=== PATIENT | female | born 1990 | race Caucasian/White ===

== ENCOUNTER → 2018-07-28 11:30 | Outpatient (CLI) | payer BC, SELFPAY ==
--- NOTE | 2018-07-28 11:41 | RAD_ITS ---
STUDY: HYSTEROSALPINGOGRAM. REASON FOR EXAM: Female, 27 years old. Infertility. FLUOROSCOPY TIME (if supplied): (0:14) minutes/seconds. TECHNIQUE: A hysterosalpingogram was performed by the puddler pile driving. Imaging was provided. COMPARISON: None. FINDINGS: There is opacification of the uterus. It is unremarkable. Both fallopian tubes are widely patent with bilateral spill. RAD/Salpingogram IMPRESSION: The fallopian tubes are widely patent with free spill bilaterally. Electronically Signed: Peter Alvarado, at 15:46 EDT , Service support ,
== END ==
PROVIDERS: Family Provider Family Medicine; PCP Family Medicine; Referring Provider Obstetrics & Gynecology; Visit Provider Obstetrics & Gynecology
DX: N97.9 Female infertility, unspecified (principal)
CPT/HCPCS: 58340; 74740; Q9967

== ENCOUNTER → 2020-01-26 17:56 | Outpatient (CLI) | payer BC, SELFPAY | PROVIDERS: PCP Family Medicine; Referring Provider Obstetrics & Gynecology; Visit Provider Obstetrics & Gynecology | DX: Z11.59 Encounter for screening for other viral diseases (principal) | CPT/HCPCS: 87635; C9803; U0003 ==

== ENCOUNTER 2020-02-01 16:14 | Inpatient (IN) | payer BC, SELFPAY ==
[2020-02-01 16:22] VITALS: BMI 31.6
[2020-02-01 16:32] VITALS: BP 122/71; PULSE 91; TEMP 36.9; O2SAT 99
--- NOTE | 2020-02-01 16:40 | HP.PCM_ITS ---
History Date of Admission: 02/01/20 Final ROBER: 01/25/20 Gestational age: 41 Weeks and 0 Days History of this : Patient presents for induction of labor. Denies complaints. Allergies No Known Allergies Allergy (Verified 02/01/20 16:24) Home Medications: Home Medications Escitalopram Oxalate [Lexapro] 20 mg PO DAILY 02/01/20 Vit No.130/Iron/Folic [ Tablet] 1 ea PO DAILY 02/01/20 Alcohol: None Number of Fetus(es): 1 NST - FHR Rate Baby A Baseline: 135 Variability:: Moderate Accelerations:: 15 x 15 Decelerations:: None NST Reactive:: Yes Uterine Activity:: Irregular History Past Pregnancies: Past Pregnancies Delivery Date Name GA/ Weeks Outcome Route Wt Sex Labor Length Anesthesia Delivery Location Provider FOB Labs: See [facility] H&P Physical Exam Vitals: Vital Signs Temp Pulse BP Pulse Ox 98.4 F 91 122/71 H 99 02/01/20 16:32 02/01/20 16:32 02/01/20 16:32 02/01/20 16:32 General: Alert, Oriented x3 Abdomen: Soft, Non Tender, Non-Distended, Gravid Neurological: Cranial nerves II-XII grossly intact [employer]: Normal external genitalia Estimated gestational size: Appropriate for gestational size Presentation: Cephalic Cervix Dilation (cm): 0 Station: -3 Effacement (%): 50 Assessment/Plan This is a 29 year-old, G2, P0010, at 41 weeks gestational age Admit to L&D Induction - start cytotec GBS negative COVID negative Pain - epidural as desired EFW - less than 4500g, patient with adequate pelvis Routine care
[2020-02-01] MEDS: 0.9% Saline Lock 10 ML Syringe IV (17:04)
[2020-02-01 17:17] LABS: Absolute Lymphocyte Count 1.94 X10^3/uL (0.83-4.51); Absolute Neutrophil Count 7.1 X10^3/uL (2.0-7.7); Basophil# 0.05 X10^3/uL; Basophil% 0.5 % (0-1); Eosinophil# 0.03 X10^3/uL; Eosinophils% 0.3 % (0-5); Hematocrit 37.6 % (37-47); Hemoglobin 12.5 g/dL (12.0-15.0); Lymphocyte # 1.94 X10^3/ul (4.0); Lymphocyte % 19.8 % (19-41); Mean Corp Hgb Conc 33.2 g/dL (32-36); Mean Corpuscular Hgb 28.7 pg (27.0-32.0); Mean Corpuscular Volume 86.4 fL (81-99); Mean Platelet Vol. 11.2 fl (6.2-12.0); Monocyte# 0.53 X10^3/uL; Monocyte% 5.4 % (0-10); NRBC Flagged by Analyzer 0 % (0-5); Neutrophil % 72.3 % (47-70); Platelet Count 161 K/mm3 (150-450); RBC Distribution Width CV 19.7 % (11.6-14.6); RBC Distribution Width SD 60.8 fl (35.1-43.9); Red Blood Count 4.35 M/mm3 (4.2-5.4); White Blood Count 9.8 K/mm3 (4.4-11.0)
[2020-02-01] MEDS: miSOPROStol 25 MCG TABLET VAGINAL ×2 (18:21→22:23)
[2020-02-01 19:19] VITALS: BP 122/76; PULSE 65; TEMP 36.6; O2SAT 99
[2020-02-01 22:27] VITALS: TEMP 36.4
[2020-02-01 22:28] VITALS: BP 106/57; PULSE 62
[2020-02-02] VITALS (32 sets, daily range): BP systolic 104–129; BP diastolic 55–81; PULSE 54–77; RESP 14–18; TEMP 35.9–37.1; O2SAT 90–100
[2020-02-02] MEDS: miSOPROStol 25 MCG TABLET VAGINAL (02:37)
[2020-02-02] MEDS: 0.9% Normal Saline Single 100 ML IV.SOLN. IY (06:41)
--- NOTE | 2020-02-02 06:47 | PCM.PN.BLA ---
Progress Note S: Patient comfortable with ctxs O: cvx - /70/-3 intracervical queen placed fhts 135 with mod variability, accels tocos Q2-4 minutes A&P: continue induction will start pitocin STROKE Vital Signs/Narrative: Vital Signs Pulse BP 02/01/ 06:38 75 120/73
[2020-02-02] MEDS: Lactated Ringers 1,000 ML 50 ML IV (07:31)
[2020-02-02] MEDS: Oxytocin 30 units/NS 500 ml 30 UNITS/500 ML IV.SOLN IV (07:41)
[2020-02-02] MEDS: Lactated Ringers 500 ML 999 ML IV ×2 (11:35→15:10)
[2020-02-02] MEDS: fentaNYL-bupivacaine (epidural) 100 ML BAG EPIDURAL ×2 (12:35→17:10)
--- NOTE | 2020-02-02 13:00 | PCM.PROGNOTE ---
Subjective: Sitting up in bed, breathing through contractions. King still in place. Partner at bedside. Objective: FHT 140, moderate variability, accels, no decels, Category 1 FHT TOCO: every 3 minutes, moderate to strong. King catheter still in place. - Physical Exam Vitals/I&O's: Vital Signs Temp Pulse BP Pulse Ox 96.6 F L 64 109/56 L 90 02/02/20 07:37 02/02/20 12:58 02/02/20 12:58 02/02/20 12:33 Weight: 195 lb 12.328 oz Body Mass Index (BMI) 31.6 Intake and Output for Last 24 Hours 01/31/20 02/01/20 02/02/20 23:59 23:59 23:59 Intake Total 600 / 600 705.20 / 705.20 Output Total 1000 / 1000 1999 / 1999 Balance -400 / -400 -1294.80 / -1294.80 Laboratory Results 02/01/20 17:00: WBC 9.8, RBC 4.35, Hgb 12.5, Hct 37.6, MCV 86.4, MCH 28.7, MCHC 33.2, RDW Std Deviation 60.8 H, RDW Coeff of Ksenia 19.7 H, Plt Count 161, MPV 11.2, Immature Gran % (Auto) 1.700 H, Neut % (Auto) 72.3 H, Lymph % (Auto) 19.8, Rhea % (Auto) 5.4, Eos % (Auto) 0.3, Baso % (Auto) 0.5, Absolute Neuts (auto) 7.1, Absolute Lymphs (auto) 1.94, Nucleated RBC % 0 02/01/20 17:00: Blood Type A POSITIVE, Antibody Screen NEGATIVE Current Medications Acetaminophen (Tylenol) 325 - 650 mg PO Q4H PRN PRN PRN Reason: Pain Score 1-3/10 Al Hydroxide/Mg Hydroxide (Mylanta Ii) 15 - 30 ml PO Q4H PRN PRN PRN Reason: INDIGESTION Citric Acid/Sodium Citrate (Bicitra) 30 ml PO X1 PRN PRN Reason: Section Ephedrine Sulfate () 10 mg IV Q10M PRN PRN Reason: hypotension Ephedrine Sulfate () 10 mg IM Q30M PRN PRN Reason: hypotension Fentanyl Citrate (Sublimaze (100mcg Ampule)) 25 - 50 mcg IV Q2H PRN PRN PRN Reason: Pain Score 4-10/10 Fentanyl/Bupivacaine/Sodium Chlor () 0 ml EPIDURAL UD [facility]; Protocol Last Admin: 02/02/20 12:35 Dose: 100 ml Documented by: Lactated Ringer's () 500 mls @ 999 mls/hr IV .Q31M PRN PRN Reason: Epidural Last Infusion: 02/02/20 12:06 Dose: Infused Documented by: Lactated Ringer's () 500 mls @ 999 mls/hr IV .Q31M PRN PRN Reason: Corrective Measures Lactated Ringer's () 1,000 mls @ 50 mls/hr IV .Q20H [facility] Last Infusion: 02/02/20 11:35 Dose: 200 mls/hr Documented by: Oxytocin/Sodium Chloride () 30 units in 500 mls @ 2 mls/hr IV .Q250H [facility] Last Infusion: 02/02/20 08:37 Dose: 4 mls/hr Documented by: Naloxone HCl 4 mg/ Dextrose 504 mls @ 0 mls/hr IV .Q0M PRN; Protocol PRN Reason: To maintain Resp. rate >10 Nalbuphine HCl (Nubain) 5 mg IV Q3H PRN PRN PRN Reason: ITCHING Naloxone HCl (Narcan) 0.02 mg IV Q1M PRN PRN Reason: RR< 10 AND PT UNRESPONSIVE Ondansetron HCl (Zofran) 4 mg IV Q4H PRN PRN PRN Reason: NAUSEA Prochlorperazine Edisylate (Compazine Iv) 10 mg IV Q6H PRN PRN PRN Reason: NAUSEA Sodium Chloride () 10 - 40 ml IV X1 PRN PRN Reason: SALINE FLUSH Last Admin: 02/01/20 17:04 Dose: 10 ml Documented by: Medical Necessity - Tobacco Use Smoking Status: Never smoker Assessment/Plan A:Induction of Labor Category 1 FHT P: 1) Continue with IOL and pitocin 2) Continuous EFM 3) Repositioned to hands and knees. Positional changes 4) notified of patient status.
--- NOTE | 2020-02-02 13:09 | PCM.PN.OB ---
Subjective: Sitting up on peanut ball. Requesting epidural Objective: 120, moderate variability, accels, no decels, Category 1 FHT, MELINA TOCO: every 2-3 minutes, moderate to strong Cervix 5cm/80/-1 AROM clear fluid - Physical Exam Vitals/I&O's: Vital Signs Temp Pulse BP Pulse Ox 96.6 F L 64 109/56 L 90 02/02/20 07:37 02/02/20 12:58 02/02/20 12:58 02/02/20 12:33 Weight: 195 lb 12.328 oz Body Mass Index (BMI) 31.6 Intake and Output for Last 24 Hours 01/31/20 02/01/20 02/02/20 23:59 23:59 23:59 Intake Total 600 / 600 705.20 / 705.20 Output Total 1000 / 1000 1999 / 1999 Balance -400 / -400 -1294.80 / -1294.80 Laboratory Results 02/01/20 17:00: WBC 9.8, RBC 4.35, Hgb 12.5, Hct 37.6, MCV 86.4, MCH 28.7, MCHC 33.2, RDW Std Deviation 60.8 H, RDW Coeff of Ksenia 19.7 H, Plt Count 161, MPV 11.2, Immature Gran % (Auto) 1.700 H, Neut % (Auto) 72.3 H, Lymph % (Auto) 19.8, Carbon % (Auto) 5.4, Eos % (Auto) 0.3, Baso % (Auto) 0.5, Absolute Neuts (auto) 7.1, Absolute Lymphs (auto) 1.94, Nucleated RBC % 0 02/01/20 17:00: Blood Type A POSITIVE, Antibody Screen NEGATIVE Current Medications Acetaminophen (Tylenol) 325 - 650 mg PO Q4H PRN PRN PRN Reason: Pain Score 1-3/10 Al Hydroxide/Mg Hydroxide (Mylanta Ii) 15 - 30 ml PO Q4H PRN PRN PRN Reason: INDIGESTION Citric Acid/Sodium Citrate (Bicitra) 30 ml PO X1 PRN PRN Reason: Section Ephedrine Sulfate () 10 mg IV Q10M PRN PRN Reason: hypotension Ephedrine Sulfate () 10 mg IM Q30M PRN PRN Reason: hypotension Fentanyl Citrate (Sublimaze (100mcg Ampule)) 25 - 50 mcg IV Q2H PRN PRN PRN Reason: Pain Score 4-10/10 Fentanyl/Bupivacaine/Sodium Chlor () 0 ml EPIDURAL UD [facility]; Protocol Last Admin: 02/02/20 12:35 Dose: 100 ml Documented by: Lactated Ringer's () 500 mls @ 999 mls/hr IV .Q31M PRN PRN Reason: Epidural Last Infusion: 02/02/20 12:06 Dose: Infused Documented by: Lactated Ringer's () 500 mls @ 999 mls/hr IV .Q31M PRN PRN Reason: Corrective Measures Lactated Ringer's () 1,000 mls @ 50 mls/hr IV .Q20H [facility] Last Infusion: 02/02/20 11:35 Dose: 200 mls/hr Documented by: Oxytocin/Sodium Chloride () 30 units in 500 mls @ 2 mls/hr IV .Q250H [facility] Last Infusion: 02/02/20 08:37 Dose: 4 mls/hr Documented by: Naloxone HCl 4 mg/ Dextrose 504 mls @ 0 mls/hr IV .Q0M PRN; Protocol PRN Reason: To maintain Resp. rate >10 Nalbuphine HCl (Nubain) 5 mg IV Q3H PRN PRN PRN Reason: ITCHING Naloxone HCl (Narcan) 0.02 mg IV Q1M PRN PRN Reason: RR< 10 AND PT UNRESPONSIVE Ondansetron HCl (Zofran) 4 mg IV Q4H PRN PRN PRN Reason: NAUSEA Prochlorperazine Edisylate (Compazine Iv) 10 mg IV Q6H PRN PRN PRN Reason: NAUSEA Sodium Chloride () 10 - 40 ml IV X1 PRN PRN Reason: SALINE FLUSH Last Admin: 02/01/20 17:04 Dose: 10 ml Documented by: Medical Necessity - Tobacco Use Smoking Status: Never smoker Assessment/Plan A:Active labor progressing Category 1 FHT P: 1) Continue with active management 2) Positional changes 3) notified
[2020-02-02] MEDS: Mag Hydrox/Al Hydrox/Simeth 30 ML UDC PO (16:11)
[2020-02-02] MEDS: Lactated Ringers 1,000 ML 200 ML IV (17:10)
--- NOTE | 2020-02-02 19:00 | PCM.PN.OB ---
Subjective: comfortable with epidural. at bedside. Objective: FHR 113, minimal variability, early and late decelerations. Category 2 TOCO: every 2-4 minutes Cervis 5cm/80/-1 with caput Pitocin at 6 mus - Physical Exam Vitals/I&O's: Vital Signs Temp Pulse BP Pulse Ox 98.2 F 63 122/67 H 100 02/02/20 16:00 02/02/20 18:03 02/02/20 18:03 02/02/20 16:00 Weight: 195 lb 12.328 oz Body Mass Index (BMI) 31.6 Intake and Output for Last 24 Hours 01/31/20 02/01/20 02/02/20 23:59 23:59 23:59 Intake Total 600 / 600 2023.47 / 2022.47 Output Total 1000 / 1000 3900 / 3900 Balance -400 / -400 -1876.53 / -1876.53 Current Medications Acetaminophen (Tylenol) 325 - 650 mg PO Q4H PRN PRN PRN Reason: Pain Score 1-3/10 Al Hydroxide/Mg Hydroxide (Mylanta Ii) 15 - 30 ml PO Q4H PRN PRN PRN Reason: INDIGESTION Last Admin: 02/02/20 16:11 Dose: 30 ml Documented by: Citric Acid/Sodium Citrate (Bicitra) 30 ml PO X1 PRN PRN Reason: Section Ephedrine Sulfate () 10 mg IV Q10M PRN PRN Reason: hypotension Ephedrine Sulfate () 10 mg IM Q30M PRN PRN Reason: hypotension Fentanyl Citrate (Sublimaze (100mcg Ampule)) 25 - 50 mcg IV Q2H PRN PRN PRN Reason: Pain Score 4-10/10 Fentanyl/Bupivacaine/Sodium Chlor () [address] [facility]; Protocol Last Admin: 02/02/20 17:10 Dose: 100 ml Documented by: Lactated Ringer's () 500 mls @ 999 mls/hr IV .Q31M PRN PRN Reason: Epidural Last Infusion: 02/02/20 12:06 Dose: Infused Documented by: Lactated Ringer's () 500 mls @ 999 mls/hr IV .Q31M PRN PRN Reason: Corrective Measures Last Infusion: 02/02/20 15:41 Dose: Infused Documented by: Lactated Ringer's () 1,000 mls @ 50 mls/hr IV .Q20H [facility] Last Admin: 02/02/20 17:10 Dose: 200 mls/hr Documented by: Oxytocin/Sodium Chloride () 30 units in 500 mls @ 2 mls/hr IV .Q250H [facility] Last Infusion: 02/02/20 14:01 Dose: 6 mls/hr Documented by: Naloxone HCl 4 mg/ Dextrose 504 mls @ 0 mls/hr IV .Q0M PRN; Protocol PRN Reason: To maintain Resp. rate >10 Nalbuphine HCl (Nubain) 5 mg IV Q3H PRN PRN PRN Reason: ITCHING Naloxone HCl (Narcan) 0.02 mg IV Q1M PRN PRN Reason: RR< 10 AND PT UNRESPONSIVE Ondansetron HCl (Zofran) 4 mg IV Q4H PRN PRN PRN Reason: NAUSEA Prochlorperazine Edisylate (Compazine Iv) 10 mg IV Q6H PRN PRN PRN Reason: NAUSEA Sodium Chloride () 10 - 40 ml IV X1 PRN PRN Reason: SALINE FLUSH Last Admin: 02/01/20 17:04 Dose: 10 ml Documented by: Medical Necessity - Tobacco Use Smoking Status: Never smoker Assessment/Plan A:Active Labor, protracted Category 2 FHT P: 1) Continue with pitocin active management 2) Positional changes and side lying release 3) notified of status and exam.
[2020-02-02] MEDS: Sodium Citrate/Citric Acid 30 ML UDC PO (20:01)
--- NOTE | 2020-02-02 20:03 | PCM.PN.BLA ---
Progress Note At bedside to talk to patient. She has been unchanged for 8 hours. Unable to titrate Pitocin given intolerance to labor. Category 2 tracing with occasional late decelerations, and now minimal variability. Recommend a section for intolerance to labor. Discussed risk, benefits, alternatives of section and patient desires to proceed. Patient provided consent. STROKE Vital Signs/Narrative: Vital Signs Temp Pulse BP Pulse Ox 02/02/20 19:34 98.8 F 68 129/79 H 100 02/02/20 18:03 63 122/67 H
[2020-02-02] MEDS: Cefazolin 2 GM in 0.9% Normal Saline 100 ML IV (20:22)
--- NOTE | 2020-02-02 21:24 | OP.PCM_ITS ---
Problem List (1) 41 weeks gestation of Status: Acute (2) Primiparous Status: Acute (3) intolerance to labor, delivered, current hospitalization Status: Acute (4) Face presentation of fetus Status: Acute Report of Operation Date of Procedure: 02/02/20 Pre-Operative Diagnosis: 41 week gestation, primiparous, intolerance to labor Post-Operative Diagnosis: As above, face presentation Surgery/Procedure Performed:: PLTCS via pfannenstiel incision Description of Surgical Findings:: was in face presentation. Normal-appearing placenta with a three-vessel cord. Normal-appearing uterus, bilateral tubes, bilateral ovaries. Type of Anesthesia:: Epidural Special Medications: None Specimen's removed: Placenta Drains: King Estimated Blood Loss (mL): 900 Fluids Replaced: 1200 Description of Procedure: Patient was taken to the operating room where epidural anesthesia was found to be adequate. She was prepped and draped in the usual sterile fashion in dorsal position with a leftward tilt. A Pfannenstiel skin incision was made with a scalpel and this was carried down to the underlying layer of fascia. The fascia was incised in the midline. The fascia was extended laterally using Seymour scissors. The fascia was dissected off of the rectus muscles using a combination of sharp and blunt dissection. The rectus muscles were in the midline. The peritoneum was entered sharply with good visualization of the bladder. The peritoneum was extended bluntly. Bladder blade was placed. A bladder flap was created. A low transverse incision was made on the uterus with a scalpel. was noted to be in face presentation. was delivered through the hysterotomy without any force or delay. The was delivered atraumatically and the cord was clamped and cut immediately, and the was handed off to the nursery staff. Cord gases were obtained. The placenta was removed manually. The uterus was exteriorized. The uterus was cleared of all clot and debris. The uterus was closed with Vicryl in 2 layers. The uterus was then placed back in the abdomen. Cristiano was placed over the hysterotomy. Hemostasis was noted. The peritoneum was closed with Vicryl in a running fashion. The fascia was closed with Vicryl in running fashion. Subcutaneous space was irrigated and made hemostatic with Bovie cautery. The subcutaneous space was reapproximated with Vicryl in a running fashion. The skin was closed with Monocryl in subcuticular fashion. Steri-Strips and a dressing were placed. Sponge, instrument, needle counts were correct. The patient was taken to recovery in stable condition. Grafts/Implants Used: None - Complications None - Admit VTE Documentation VTE Present on Admission: No VTE Mechan Device Prophylaxis: SCD's VTE Pharm Prophylaxis ordered?: Yes Delivery Classification: MIGDALIA Final ROBER: 01/25/20 Gestational age: 41 Weeks and 1 Days Type of Anesthesia:: Epidural Indications for : Distress Amniotic Fluid Description: Clear Drain: King to straight drain Cord Entanglement: None Cord Vessel Description: 3 Vessels Gender: Male (1 minute): 8 (5 minute): 9 Delayed cord clamping: No Antibiotic Given: Ancef 2 grams IV x1, Zithromax 500 mg/5 mL X1 Pt instructed on risks of surgery: Bleeding, Infection, Need for Future C- Sections, Injury to surrounding structure(s) including bowel and bladder
[2020-02-02] MEDS: Oxytocin 30 units/NS 500 ml 30 UNITS/500 ML IV.SOLN 167 UNITS IV (21:35)
--- NOTE | 2020-02-02 22:35 | NURSING ---
1200 cc LR given per dr jean-baptiste anesthesia in OR.
[2020-02-03] VITALS (11 sets, daily range): BP systolic 91–121; BP diastolic 49–75; PULSE 67–80; RESP 14–18; TEMP 36.1–37.1; O2SAT 97–100
[2020-02-03] MEDS: Lactated Ringers 1,000 ML 100 ML IV (00:38)
[2020-02-03] MEDS: 0.9% Saline Lock 10 ML Syringe IV ×5 (03:29→21:45)
[2020-02-03] MEDS: Ketorolac 30 MG/ML Syringe IV ×4 (03:29→21:45)
[2020-02-03] MEDS: Acetaminophen 500 MG Tablet 1000 MG PO ×4 (03:29→21:45)
[2020-02-03 03:56] LABS: Hematocrit 37.1 % (37-47); Hemoglobin 12.4 g/dL (12.0-15.0); Mean Corp Hgb Conc 33.4 g/dL (32-36); Mean Corpuscular Hgb 28.9 pg (27.0-32.0); Mean Corpuscular Volume 86.5 fL (81-99); Mean Platelet Vol. 10.3 fl (6.2-12.0); Platelet Count 143 K/mm3 (150-450); RBC Distribution Width CV 19.8 % (11.6-14.6); RBC Distribution Width SD 61.7 fl (35.1-43.9); Red Blood Count 4.29 M/mm3 (4.2-5.4); White Blood Count 12.6 K/mm3 (4.4-11.0)
--- NOTE | 2020-02-03 03:56 | NURSING ---
pt able to get out of bed independently with RN at bedside. pt marched in place for a few minutes before sitting back in bed.
--- NOTE | 2020-02-03 08:15 | NURSING ---
voided, missed hat. states feels like emptying bladder, no discomfort. denies concern
--- NOTE | 2020-02-03 08:33 | PN.OBGYN_ITS ---
Patient Problems: Active and Suspected Problems (Last Updated 02/01/20 @ 16:[address] Nathaly Moralez MD) 41 weeks gestation of (Acute) Primiparous (Acute) intolerance to labor, delivered, current hospitalization (Acute) Face presentation of fetus (Acute) Subjective: pt seen at bedside, doing well. pt reports good pain control. lochia mild. voiding w/o difficulty. Denies CP, SOB, dizziness. Ambulating without difficulty. - Physical Exam Vitals/I&O's: Vital Signs Temp Pulse Resp BP Pulse Ox 97.6 F L 70 14 116/72 99 02/03/20 05:32 02/03/20 06:30 02/03/20 06:30 02/03/20 05:32 02/03/20 06:30 Oxygen Delivery Method Room Air Weight: 88.8 kg Body Mass Index (BMI) 31.6 Intake and Output for Last 24 Hours 02/01/20 02/02/20 02/03/20 23:59 23:59 23:59 Intake Total 600 / 600 3264.30 / 3264.30 2328.33 / 2328.33 Output Total 1000 / 1000 4675 / 4675 2700 / 2700 Balance -400 / -400 -1410.70 / -1410.70 -371.67 / -371.67 General: Alert, Oriented x3 Abdomen: Soft, Non Tender, Non-Distended, - - fundus firm. dressing dry and intact Laboratory Results 02/03/20 03:50: WBC 12.6 H, RBC 4.29, Hgb 12.4, Hct 37.1, MCV 86.5, MCH 28.9, MCHC 33.4, RDW Std Deviation 61.7 H, RDW Coeff of Ksenia 19.8 H, Plt Count 143 L, MPV 10.3 Current Medications Acetaminophen (Tylenol) 1,000 mg PO Q6H [facility] Last Admin: 02/03/20 03:29 Dose: 1,000 mg Documented by: Bisacodyl (Dulcolax) 10 mg RECTAL UD PRN PRN Reason: If no BM Diphenhydramine HCl (Benadryl) 25 mg PO Q6H PRN PRN PRN Reason: ITCHING Stop: 02/03/20 21:48 Enoxaparin Sodium (Lovenox) 40 mg SC DAILY [facility] Hydrocortisone (Hytone) 1 applic TOPICAL TID PRN PRN; Protocol PRN Reason: Discomfort Lactated Ringer's () 1,000 mls @ 100 mls/hr IV .Q10H [facility] Last Infusion: 02/03/20 05:55 Dose: Infused Documented by: Naloxone HCl 4 mg/ Dextrose 504 mls @ 0 mls/hr IV .Q0M PRN; Protocol PRN Reason: To maintain Resp. rate >10 Ibuprofen (Motrin) 600 mg PO Q6H [facility] Ketorolac Tromethamine (Toradol (Bkc)) 30 mg IV Q6H [facility] Stop: 02/03/20 21:16 Last Admin: 02/03/20 03:29 Dose: 30 mg Documented by: Methylergonovine Maleate (Methergine) 0.2 mg IM X1 PRN PRN Reason: Uterine Atony Nalbuphine HCl (Nubain) 5 mg IV Q3H PRN PRN PRN Reason: ITCHING Stop: 02/03/20 21:48 Naloxone HCl (Narcan) 0.02 mg IV Q1M PRN PRN Reason: RR <10 and pt unresponsive Ondansetron HCl (Zofran) 4 mg IV Q4H PRN PRN PRN Reason: Nausea Oxycodone HCl (Oxyir) 5 - 10 mg PO Q4H PRN PRN PRN Reason: Pain Score 4-10/10 Prochlorperazine Edisylate (Compazine Iv) 10 mg IV Q6H PRN PRN PRN Reason: NAUSEA Senna/Docusate Sodium (Senokot-S, Mary-Colace) 1 - 2 tablet PO DAILY [facility] Simethicone (Mylicon) 80 mg PO [facility] PRN PRN Reason: Indigestion/stomach pain Sodium Chloride () 5 - 15 ml IV UD PRN PRN Reason: SALINE FLUSH Last Admin: 02/03/20 05:55 Dose: 10 ml Documented by: Medical Necessity - Tobacco Use Smoking Status: Never smoker Assessment/Plan All Active Problems (Last Updated 02/01/20 @ 16:[address] Nathaly Moralez MD) 41 weeks gestation of (Acute) Primiparous (Acute) intolerance to labor, delivered, current hospitalization (Acute) Face presentation of fetus (Acute) POD#1, doing well routine care pain mgmt ambulation
[2020-02-03] MEDS: Enoxaparin 40 MG/0.4 ML Syringe SC (08:59)
[2020-02-03] MEDS: Senna/Docusate Sodium 1 Tablet PO (09:00)
--- NOTE | 2020-02-03 16:20 | CASEMGMT ---
Social Work Labor and Delivery Unit Consult received and noted. Chart has been reviewed. Plan to see patient/mother of baby on 02.04.2020 for assessment/consult and provision of resources as indicated. -KRYSTLE Hirsch, CARD WRITER HAND
--- NOTE | 2020-02-03 18:43 | NURSING ---
education given on IS use ad purpose
[2020-02-04 01:37] VITALS: BP 112/59; PULSE 58; RESP 16; TEMP 36.3; O2SAT 100
[2020-02-04] MEDS: Acetaminophen 500 MG Tablet 1000 MG PO ×3 (03:57→18:42)
[2020-02-04] MEDS: Ibuprofen 600 MG Tablet PO ×3 (03:57→18:42)
--- NOTE | 2020-02-04 07:52 | PCM.PN.OB ---
Patient Problems: Active and Suspected Problems (Last Updated 02/01/20 @ 16:[address] Nathaly Moralez MD) 41 weeks gestation of (Acute) Primiparous (Acute) intolerance to labor, delivered, current hospitalization (Acute) Face presentation of fetus (Acute) Subjective: Patient seen at bedside. Up ambulating in room. Passing flatus. Voiding without difficulty. infant and working with . Desires discharge home today. - Physical Exam Vitals/I&O's: Vital Signs Temp Pulse Resp BP Pulse Ox 97.4 F L 58 L 16 112/59 L 100 02/04/20 01:37 02/04/20 01:37 02/04/20 01:37 02/04/20 01:37 02/04/20 01:37 Oxygen Delivery Method Room Air Weight: 195 lb 12.328 oz Body Mass Index (BMI) 31.6 Intake and Output for Last 24 Hours 02/02/20 02/03/20 02/04/20 23:59 23:59 23:59 Intake Total 3264.30 / 3264.30 2328.33 / 2328.33 Output Total 4675 / 4675 2700 / 2700 Balance -1410.70 / -1410.70 -371.67 / -371.67 General: Alert, Oriented x3, Cooperative HEENT: Atraumatic Neck: Supple Lungs: Clear to auscultation Cardiovascular: Regular rate Abdomen: Soft, Non Tender, Passing Flatus Skin: No rashes Musculoskeletal: No Tenderness to Palpation of Joints or Extremities Neurological: Cranial nerves II-XII grossly intact Current Medications Acetaminophen (Tylenol) 1,000 mg PO Q6H [facility] Last Admin: 02/04/20 03:57 Dose: 1,000 mg Documented by: Bisacodyl (Dulcolax) 10 mg RECTAL UD PRN PRN Reason: If no BM Enoxaparin Sodium (Lovenox) 40 mg SC DAILY [facility] Last Admin: 02/03/20 08:59 Dose: 40 mg Documented by: Hydrocortisone (Hytone) 1 applic TOPICAL TID PRN PRN; Protocol PRN Reason: Discomfort Naloxone HCl 4 mg/ Dextrose 504 mls @ 0 mls/hr IV .Q0M PRN; Protocol PRN Reason: To maintain Resp. rate >10 Ibuprofen (Motrin) 600 mg PO Q6H [facility] Last Admin: 02/04/20 03:57 Dose: 600 mg Documented by: Methylergonovine Maleate (Methergine) 0.2 mg IM X1 PRN PRN Reason: Uterine Atony Naloxone HCl (Narcan) 0.02 mg IV Q1M PRN PRN Reason: RR <10 and pt unresponsive Ondansetron HCl (Zofran) 4 mg IV Q4H PRN PRN PRN Reason: Nausea Oxycodone HCl (Oxyir) 5 - 10 mg PO Q4H PRN PRN PRN Reason: Pain Score 4-10/10 Prochlorperazine Edisylate (Compazine Iv) 10 mg IV Q6H PRN PRN PRN Reason: NAUSEA Senna/Docusate Sodium (Senokot-S, Mary-Colace) 1 - 2 tablet PO DAILY [facility] Last Admin: 02/03/20 09:00 Dose: 2 tablet Documented by: Simethicone (Mylicon) 80 mg PO [facility] PRN PRN Reason: Indigestion/stomach pain Last Admin: 02/03/20 15:25 Dose: 80 mg Documented by: Sodium Chloride () 5 - 15 ml IV UD PRN PRN Reason: SALINE FLUSH Last Admin: 02/03/20 21:45 Dose: 10 ml Documented by: Medical Necessity - Tobacco Use Smoking Status: Never smoker Assessment/Plan All Active Problems (Last Updated 02/01/20 @ 16:[address] Nathaly Moralez MD) 41 weeks gestation of (Acute) Primiparous (Acute) intolerance to labor, delivered, current hospitalization (Acute) Face presentation of fetus (Acute)
--- NOTE | 2020-02-04 08:00 | DCINST_ITS ---
Discharge Diet: No Restrictions Additional Instructions: If you experience any of the following, contact your healthcare provider. * Bleeding that soaks a pad every hour for 2 hours * Fever 100.4 or higher * Unrelieved incision or abdominal pain * Swelling, redness, discharge or bleeding from your incision or episi otomy site * Your incision begins to separate * Problems urinating (including inability to urinate or burning while urinating). * Visual changes * Severe headache * Flu-like symptoms * Pain or redness in one of both of your breasts * Pain, warmth, tenderness or swelling in your legs, especially the calf area * Frequent nausea and vomiting * Symptoms of depression or anxiety If you experience any of the following, call 911 or go to the nearest Emergency Room. * Chest pain * Problems breathing * Seizure activity * Partial or complete paralysis of a body part, slurred speech, weakness or drooping of the face, or a sudden inability to walk or hold your balance Allergies/Adverse Reactions: Allergies No Known Allergies Allergy (Verified 02/01/20 16:24) Medications to take at Discharge Escitalopram Oxalate [Lexapro] 20 mg PO DAILY 02/01/20 Vit No.130/Iron/Folic [ Tablet] 1 ea PO DAILY 02/01/20 Follow-Up: Call to make an appointment with your doctor for an incision check in 1-2 weeks. You will also need a 6 week post- follow up appointment. Test results from this visit will be discussed in further detail at your follow- up appointment, if applicable. Primary Care Physician: Awais Macias MD [Primary Care Provider] - Proposed Discharge Date: 02/04/20
--- NOTE | 2020-02-04 08:00 | PCM.DCCSEC ---
Discharge Diet: No Restrictions Additional Instructions: If you experience any of the following, contact your healthcare provider. Bleeding that soaks a pad every hour for 2 hours Fever 100.4 or higher Unrelieved incision or abdominal pain Swelling, redness, discharge or bleeding from your incision or episiotomy site Your incision begins to separate Problems urinating (including inability to urinate or burning while urinating). Visual changes Severe headache Flu-like symptoms Pain or redness in one of both of your breasts Pain, warmth, tenderness or swelling in your legs, especially the calf area Frequent nausea and vomiting Symptoms of depression or anxiety If you experience any of the following, call 911 or go to the nearest Emergency Room. Chest pain Problems breathing Seizure activity Partial or complete paralysis of a body part, slurred speech, weakness or drooping of the face, or a sudden inability to walk or hold your balance Allergies/Adverse Reactions: Allergies No Known Allergies Allergy (Verified 02/01/20 16:24) Medications to take at Discharge Escitalopram Oxalate [Lexapro] 20 mg PO DAILY 02/01/20 Vit No.130/Iron/Folic [ Tablet] 1 ea PO DAILY 02/01/20 Follow-Up: Call to make an appointment with your doctor for an incision check in 1-2 weeks. You will also need a 6 week post- follow up appointment. Test results from this visit will be discussed in further detail at your follow-up appointment, if applicable. Primary Care Physician: Awais Macias MD [Primary Care Provider] - Proposed Discharge Date: 02/04/20
[2020-02-04 08:43] VITALS: BP 102/63; PULSE 68; RESP 18; TEMP 36.6; O2SAT 100
[2020-02-04] MEDS: Senna/Docusate Sodium 1 Tablet PO (10:13)
[2020-02-04] MEDS: Enoxaparin 40 MG/0.4 ML Syringe SC (10:15)
--- NOTE | 2020-02-04 11:10 | CASEMGMT ---
Social Work Labor and Delivery Unit Reason for referral: maternal history of depression and anxiety. Summary: Patient/mother of baby (MOB) Imelda Flores is a 29 year old Caucasians female, to father of baby (FOB) Benoit Flores who is age 30. MOB and FOB together for 4 years. MOB works at [employer] and FOB is an hydraulics engineer. 2nd for MOB and first delivery. Baby baby Christian was born on 02.02.2022 and weighed 7 pounds 13 ounces at . Apgars 8 and 9 at 1 and 5 minutes of life. MOB reports history of depression and anxiety since high school and has been on Lexapro for many years. MOB reports has tried to go off of the medicine in the past without success, and reports to feel as though the medicine works well. MOB and FOB deny any history of substance use issues. Maternal drug screen negative on 06.25.2019. MOB endorses to have good support from FOB, mother, and several good female friends. Assessment: MOB and FOB both polite and cooperative with social work visit. Both engaged in conversation. FOB asking appropriate questions regarding depression and how to be proactive. MOB reports intent to remain on her antidepressant in the period, listened to education on risk for mood and anxiety disorders, and agreed to speak up should symptoms arise or become distressing. MOB is future oriented. Parents report to have needed supplies to care for baby. FOB will be at home to help out for a month. No voice concerns at this time. No voiced concerns by staff regarding mother/child interactions or bonding. Observed both parents handle the infant and noted appropriate interactions. MOB endorses having loving feelings for the baby. Provided packet on mood and anxiety disorders, local resources, and online resources. Plan: MOB and baby to home when ready for discharge. No further needs requested or indicated. -KRYSTLE Hirsch, RADIO REPAIRMAN
--- NOTE | 2020-02-04 12:03 | NURSING ---
Assisted student with medication administration and Lovenox SQ injection
[2020-02-04 13:31] VITALS: BP 104/61; PULSE 84; RESP 17; TEMP 36.3; O2SAT 98
[2020-02-04 18:59] VITALS: BP 109/69; PULSE 62; RESP 18; TEMP 36.6
--- NOTE | 2020-02-08 08:20 | PCM.DC.SUM ---
Discharge Date and Diagnosis Date of Admission: 02/01/20 Date of Discharge: 02/04/20 Hospital Course and Treatment Summary of Care Provided: The patient is a 29 year old F with primary c/s for intolerance to labor. Hospital course uneventful. Patient stable. - Physical Exam Vitals/I&O's: Vital Signs Temp Pulse Resp BP Pulse Ox 97.9 F 62 18 109/69 98 02/04/20 18:59 02/04/20 18:59 02/04/20 18:59 02/04/20 18:59 02/04/20 13:31 Oxygen Delivery Method Room Air Weight: 195 lb 12.328 oz Body Mass Index (BMI) 31.6 Discharge Diet: No Restrictions Home Medications: Medications to take at Discharge Escitalopram Oxalate [Lexapro] 20 mg PO DAILY 02/01/20 Vit No.130/Iron/Folic [ Tablet] 1 ea PO DAILY 02/01/20 Primary Care Physician: Awais Macias MD [Primary Care Provider] - Medical Necessity - Tobacco Use Smoking Status: Never smoker Meaningful Use Info Meaningful Use Diagnoses (Choose all that apply): None applicable
== END 2020-02-04 19:22 | disposition home or self-care (01) | DRG 788 ==
PROVIDERS: Obstetrics & Gynecology; Admitting Provider Obstetrics & Gynecology; PCP Family Medicine; Visit Provider Obstetrics & Gynecology
DX: O48.0 Post-term pregnancy (principal); O32.3XX0 Maternal care for face, brow and chin presentation, not applicable or unspecified; O76 Abnormality in fetal heart rate and rhythm complicating labor and delivery; Z3A.41 41 weeks gestation of pregnancy; Z37.0 Single live birth
CPT/HCPCS: 59025; 59050; 85025; 85027; 86850; 86900; 86901; 99218; 99251; J7120; A4216; G0378; G0463

== ENCOUNTER 2022-02-27 04:25 | Inpatient (IN) | payer BC, SELFPAY ==
[2022-02-27] VITALS (23 sets, daily range): BP systolic 95–129; BP diastolic 26–82; PULSE 64–109; RESP 12–23; TEMP 36.1–37.3; O2SAT 95–100
[2022-02-27] MEDS: Lactated Ringers 1,000 ML 999 ML IV ×2 (04:40→05:45)
[2022-02-27] MEDS: Acetaminophen 500 MG Tablet 1000 MG PO ×4 (04:50→23:24)
[2022-02-27] MEDS: Sodium Citrate/Citric Acid 30 ML UDC PO (04:51)
[2022-02-27 04:57] LABS: Absolute Lymphocyte Count 1.09 X10^3/uL (0.83-4.51); Basophil# 0.03 X10^3/uL; Basophil% 0.2 % (0-1); Hematocrit 34.3 % (37-47); Hemoglobin 11.8 g/dL (12.0-15.0); Lymphocyte # 1.09 X10^3/ul (0.83-4.51); Lymphocyte % 7.8 % (19-41); Mean Corp Hgb Conc 34.4 g/dL (32-36); Mean Corpuscular Hgb 27.6 pg (27.0-32.0); Mean Corpuscular Volume 80.1 fL (81-99); Mean Platelet Vol. 10.4 fl (6.2-12.0); Monocyte# 0.72 X10^3/uL; Monocyte% 5.2 % (0-10); NRBC Flagged by Analyzer 0 % (0-5); Neutrophil % 85.8 % (47-70); Platelet Count 189 K/mm3 (150-450); RBC Distribution Width CV 12.8 % (11.6-14.6); RBC Distribution Width SD 36.2 fl (35.1-43.9); Red Blood Count 4.28 M/mm3 (4.2-5.4)
[2022-02-27] MEDS: Cefazolin 2 GM in 0.9% Normal Saline 100 ML IV (05:25)
--- NOTE | 2022-02-27 05:29 | PCM.HP.OB ---
HPI - General General Date of Admission: 02/27/22 HPI Narrative KATERYNA CIFUENTES, is a 31 F who presents with cctxs. Maternal Data Information Final ROBER: 03/09/22 Gestational age: 38&3 PFSH PFSH Medical History (Updated 02/27/22 @ 05:[address] Nathaly Moralez MD) Anemia Anxiety History of pericarditis Home Medications escitalopram oxalate 20 mg tablet 20 mg PO DAILY Check with primary doctor 02/01/20 [History Last Taken 02/26/22 08:00] vits no.130-ferrous fum 27 mg iron-folic acid 800 mcg tablet 1 ea PO DAILY Check with primary doctor 02/01/20 [History Last Taken 02/26/22 08:00] Allergy/AdvReac Type Severity Reaction Status Date / Time No Known Allergies Allergy Verified 02/27/22 01:50 Surgical History (Updated 02/27/22 @ 05:[address] Nathaly Moralez MD) Previous section Previous section Social History Smoking Status: Never smoker History Elective abortions Hx Para 1 Spontaneous abortions Hx # Term Pregnancies Ectopic pregnancies Hx # Pregnancies Multiple births # of living children Vital Signs Vital Signs Vital Signs: 02/27/22 02:02 02/27/22 02:02 02/27/22 02:01 Temperature Temperature Source Pulse Rate 70 Respiratory Rate Blood Pressure 122/81 H Blood Pressure Mean BP Systolic 122 BP Diastolic 81 Blood Pressure Source Blood Pressure Position Blood Pressure Location Pulse Ox 100 Oxygen Delivery Method 02/27/22 02:03 02/27/22 02:03 02/27/22 04:47 Temperature 98.5 F Temperature Source Temporal Pulse Rate Respiratory Rate Blood Pressure 129/82 H Blood Pressure Mean BP Systolic 129 BP Diastolic 82 Blood Pressure Source Blood Pressure Position Blood Pressure Location Pulse Ox Oxygen Delivery Method 02/27/22 04:47 02/27/22 04:47 02/27/22 04:47 Temperature Temperature Source Temporal Pulse Rate 73 Respiratory Rate Blood Pressure Blood Pressure Mean BP Systolic BP Diastolic Blood Pressure Source Blood Pressure Position Blood Pressure Location Pulse Ox 100 Oxygen Delivery Method 02/27/22 04:47 02/27/22 04:47 Temperature 98.4 F 98.4 F Temperature Source Temporal Pulse Rate 75 Respiratory Rate 18 Blood Pressure 129/82 H Blood Pressure Mean 97 BP Systolic BP Diastolic Blood Pressure Source Monitor Blood Pressure Position Semi-Fowlers Blood Pressure Location Right Arm Pulse Ox 100 Oxygen Delivery Method Room Air Weight Weight: 186 lb 3.2 oz Body Mass Index (BMI) 30.0 Labs Labs Labs: Blood Type A POSITIVE Antibody Screen NEGATIVE Hct 34.3 % (37-47) L Hgb 11.8 g/dL (12.0-15.0) L Rhogam given: No See [facility] H&P Assessment & Plan (1) Previous section: COMMENT: @ 38&4 PLAN: Admit to L&D for labor MOD - repeat . patient counseled on R/B/A. COVID negative Routine care (2) 38 weeks gestation of :
[2022-02-27] MEDS: miSOPROStol 200 MCG Tablet 1000 MCG INTRA-UTER (05:49)
--- NOTE | 2022-02-27 06:23 | EX.PCM.OBRPT ---
Maternal Data Information Final ROBER: 03/09/22 Gestational age: 38&4 Details Operative Information Date of Procedure: 02/27/22 Pre-Operative Diagnosis: (1) Prior section (2) Labor Post-Operative Diagnosis: Same Indications for : Repeat Elective Indications Narrative: The patient was taken to the operating room where spinal anesthesia was placed & found to be adequate. She was prepped and draped in the dorsal supine position with a leftward tilt. A Pfannenstiel skin incision was made approximately 2 cm above the symphysis pubis and carried through to the underlying fascia with the scalpel. The fascia was incised incised in the midline and extended laterally with the Seymour scissors. The rectus muscles were in the midline and the peritoneum was entered carefully and bluntly. The peritoneal incision was stretched and the bladder blade was inserted. Vesicouterine peritoneum was tented up, incised & then bladder flap created gently. The uterine incision was made in a low transverse fashion with the scalpel and extended superiorly and inferiorly with blunt dissection. The infant's head was brought to the incision in the flexed position and delivered without difficulty. The head was gently guided to allow delivery of the anterior and posterior shoulders. The body then delivered with fundal pressure in the standard fashion. The 3VC cord was clamped and cut in delayed fashion. The was handed off to the waiting pediatrics teacher. The placenta was delivered with fundal massage and gentle traction in the standard fashion. The uterus was exteriorized and cleared of clots and debris. The uterine incision was closed with #1 Vicryl suture in a running locked fashion. Monocryl suture was used in an imbricating fashion. The incision was examined and was found to be hemostatic. The uterus was returned to the abdominal cavity. After irrigating Cristiano was placed over the uterine incision as some areas were denuded (but hemostatic). The peritoneum was closed with vicryl suture in running fashion The rectus muscle was examined and any bleeding was Bovie cauterized. The fascia was closed with PDS suture in a running standard fashion. The subcutaneous tissue was examining and any bleeding was Bovie cauterized. The subcutaneous tissue was reapproximated with interrupted sutures. The skin was closed in a subcuticular fashion by the YANG while I was present in the labor & delivery unit. The remainder of the procedure was performed by me with assistance. All sponge, lap, and needle counts were correct. The patient was taken to her room for recovery in a stable condition. Classification: MIGDALIA Procedure Type: low transverse warehouse examiner #1: Maggie Acosta Type of Anesthesia: Spinal Antibiotic Given: Ancef 2 grams IV x1 Estimated Blood Loss: 800ml Fluids Replaced: 1,000ml Procedure Start Time: 05:39 Procedure Stop Time: 06:26 Findings Description of Procedure: Normal maternal uterus and adnexa Presentation: Positive for Vertex Amniotic Membrane Rupture Type: Artificial Amniotic Fluid Description: Clear Placental Delivery Description: Expressed Placenta Disposition: [facility] Specimen(s) Sent to Pathology: None Cord Vessel Description: 3 Vessels Cord Entanglement: None A Gender: Male (Miles, weight = 6-13) (1 minute): 8 (5 minute): 9 Delayed Cord Clamping: Yes Complications Complications: None
[2022-02-27] MEDS: Lactated Ringers 1,000 ML 100 ML IV (07:16)
[2022-02-27] MEDS: 0.9% Saline Lock 10 ML Syringe IV ×2 (07:16→18:54)
[2022-02-27] MEDS: Ketorolac 30 MG/ML Syringe IV ×3 (07:17→18:54)
[2022-02-27] MEDS: Escitalopram Oxalate 20 MG Tablet PO (09:44)
[2022-02-27] MEDS: Senna/Docusate Sodium 1 Tablet PO (09:44)
[2022-02-27] MEDS: Prenatal Vits Tablet 1 TABLET PO (09:44)
[2022-02-27] MEDS: FLU VACC QS2022-23(6MOS UP)/PF 60 MCG/0.5 ML SYRINGE IM (09:45)
[2022-02-27] MEDS: Nalbuphine 10 MG/ML Ampul 5 MG IV (10:38)
[2022-02-27] MEDS: Enoxaparin 40 MG/0.4 ML Syringe SC (18:54)
[2022-02-28] MEDS: Ketorolac 30 MG/ML Syringe IV (01:19)
[2022-02-28] MEDS: 0.9% Saline Lock 10 ML Syringe IV (01:20)
[2022-02-28 03:36] VITALS: BP 97/62; PULSE 62; RESP 18; TEMP 36.1; O2SAT 97
[2022-02-28] MEDS: Acetaminophen 500 MG Tablet 1000 MG PO ×2 (05:29→11:13)
[2022-02-28 05:44] LABS: Hematocrit 30.4 % (37-47); Hemoglobin 10.1 g/dL (12.0-15.0); Mean Corp Hgb Conc 33.2 g/dL (32-36); Mean Corpuscular Hgb 27.4 pg (27.0-32.0); Mean Corpuscular Volume 82.6 fL (81-99); Mean Platelet Vol. 10.4 fl (6.2-12.0); Platelet Count 137 K/mm3 (150-450); RBC Distribution Width CV 12.8 % (11.6-14.6); RBC Distribution Width SD 38.7 fl (35.1-43.9); Red Blood Count 3.68 M/mm3 (4.2-5.4); White Blood Count 8.4 K/mm3 (4.4-11.0)
[2022-02-28] MEDS: Ibuprofen 600 MG Tablet PO ×2 (08:09→13:10)
[2022-02-28 08:13] VITALS: BP 106/66; PULSE 67; RESP 16; TEMP 36.2; O2SAT 100
--- NOTE | 2022-02-28 08:15 | PCM.PN.OB ---
Documented by User: Mirta Rosario CNM 02/28/22 08:15 Objective Data Objective Data Vital Signs: Vital Signs Temp Pulse Resp BP Pulse Ox O2 Del Method 97.1 F L 67 16 106/66 100 Room Air 02/28/22 08:13 02/28/22 08:13 02/28/22 08:13 02/28/22 08:13 02/28/22 08:13 02/28/22 08:13 Oxygen Delivery Method Room Air Weight: 186 lb 3.2 oz Body Mass Index (BMI) 30.0 Intake & Output: Intake and Output for Last 24 Hours 02/26/22 02/27/22 02/28/22 23:59 23:59 23:59 Intake Total 3691.67 / 3691.67 Output Total 3125 / 3125 Balance 566.67 / 566.67 Lab / Micro Data Result Diagrams: 02/28/22 05:37 Labs: Laboratory Results - last 24 hr 02/28/22 05:37: WBC 8.4, RBC 3.68 L, Hgb 10.1 L, Hct 30.4 L, MCV 82.6, MCH 27.4, MCHC 33.2, RDW Std Deviation 38.7, RDW Coeff of Ksenia 12.8, Plt Count 137 L, MPV 10.4 Micro: Microbiology 02/27/22 04:45 Nasal Secretion SARS-CoV-2 Antigen (Rapid) - Final Assessment & Plan (1) delivery delivered: Documented by User: Dr. Nano Smith MD 02/28/22 11:43 Subjective Subjective pain well controlled, average lochia. Some flatus, no BM. Tolerating regular diet. Objective Data Lab / Micro Data Result Diagrams: 02/28/22 05:37 Physical Exam Const alert General Appearance: cooperative GI GI Narrative: soft, moderate distention, fundus firm, appropriately tender. Abdominal bandage clean dry and intact Assessment & Plan (1) delivery delivered: PLAN: Postoperative day #1 post repeat section. Patient and are doing well. is bottlefeeding. Patient desires discharge home later today. Prescriptions given. Routine follow-up and instructions.
[2022-02-28] MEDS: Senna/Docusate Sodium 1 Tablet PO (11:13)
--- NOTE | 2022-02-28 11:44 | PCM.DC.SUM ---
Providers Date of Admission: 02/27/22 Primary Care Physician: Dr. Awais Macias MD Reason For Visit: Diagnosis Discharge Diagnosis (1) delivery delivered: Status: Acute Code(s): O82 - Encounter for delivery without indication Plan: Postoperative day #1 post repeat section. Patient and are doing well. is bottlefeeding. Patient desires discharge home later today. Prescriptions given. Routine follow-up and instructions. Medications at Discharge Home Medications escitalopram oxalate 20 mg tablet 20 mg PO DAILY Check with primary doctor 02/01/20 vits no.130-ferrous fum 27 mg iron-folic acid 800 mcg tablet 1 ea PO DAILY Check with primary doctor 02/01/20 ibuprofen 600 mg tablet 600 mg PO Q6H PRN PRN pain 20 days #60 TABLETS 02/28/22 oxycodone 5 mg tablet 5 mg PO Q8H PRN severe pain 7 days #8 TABLETS 02/28/22 Hospital Course Operations - (Repeat low transverse section performed on 02/27/2022.) Procedures None Summary of Care Provided Hospital Course: Carmencita is a 31-year-old female who had a previous section and desired repeat section. She presented at 38 weeks gestation with spontaneous labor. Dr. Moralez performed the repeat section on 02/27/2022. Patient are doing well today and patient desires discharge home. Weight / BMI Weight Weight: 84.459 kg Body Mass Index (BMI) 30.0 ABG / Lab / Microbiology Data Result Diagrams: 02/28/22 05:37 Laboratory: Laboratory Results - last 24 hr 02/28/22 05:37: WBC 8.4, RBC 3.68 L, Hgb 10.1 L, Hct 30.4 L, MCV 82.6, MCH 27.4, MCHC 33.2, RDW Std Deviation 38.7, RDW Coeff of Ksenia 12.8, Plt Count 137 L, MPV 10.4 Microbiology: Microbiology 02/27/22 04:45 Nasal Secretion SARS-CoV-2 Antigen (Rapid) - Final D/C Instructions May resume sexual activity in: 6 weeks Call your doctor if your incision/area has: Continuous Slow Oozing, Sudden Increased Bleeding and Foul Smelling Discharge Call your doctor if you observe: Fever of 101 or Higher Remove Dressing in: 4 days Cleanse incision/area with: Soap & Water Please Follow Up With: Nano Smith MD When: Follow up with our office in 1-2 and 6 weeks or as needed. [phone] Meaningful Use Info Meaningful Use Diagnoses (Choose all that apply): None applicable Discharge Plan Admission Admit Date/Time: 02/27/22 04:25 Primary Reason for Your Visit: delivery Attending Provider: Nathaly Moralez Primary Care Provider: Awais Macias Discharge Orders/Prescriptions Prescriptions: New ibuprofen [ibuprofen] 600 MG tablet 600 mg PO Q6H PRN PRN (Reason: pain) 20 Days Qty: 60 1RF oxycodone 5 MG tablet 5 mg PO Q8H PRN (Reason: severe pain) 7 Days Qty: 8 0RF Continued escitalopram oxalate 20 MG tablet 20 mg PO DAILY vit no.[id number] 1 EACH tablet 1 ea PO DAILY Referrals / Follow Up: Awais Macias MD [Primary Care Provider] - Disposition Disposition (needs filled in before D/C Order can be placed): Home, Self Care
[2022-02-28] MEDS: oxyCODONE 5 MG Tablet PO (13:20)
[2022-02-28 13:25] VITALS: BP 112/66; PULSE 64; RESP 16; TEMP 36.1; O2SAT 98
--- NOTE | 2022-02-28 15:16 | CASEMGMT ---
SW Note Referral Source: [facility] KORY Referral Reason: History of anxiety and depression. On Lexapro KORY met with REMEDIOS Diaz RN, and she voiced that she has no concerns regarding patient. KORY met with REMEDIOS and JONA Berumen and FOB in regard to consult. MOB gave verbal consent to meet with her in the presence of the FOB. Mom: Imelda Munguia PNC: [facility] Control: MOB said that they are working on it. Baby: Favian : 02/27/[birth year] Apgars: 8/9 Weight: 6# 13 ounces Slot Floor Person: Dr. Benavidez Bottle Feeding MOB' other children: Syed, age 2 Housing: MOB reports they reside in a house that is adequate to meet their needs. Transportation: REMEDIOS reports she has access and is able to drive when medically clear to drive. Supplies: REMEDIOS reports that he has safe crib, bassinet, carseat and diapers for the nb. Support: MOB reports she has lots of support from friends and family. MOB reports that her parents and the FOB's parents are local and supportive. Education Level: MOB graduated high school and college. No learning issues Employment: REMEDIOS reports that she works for a [employer]. She plans to return to work in 6-8 weeks. 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 MOB reports that they have a voice over announcer that will care for both of the children. Agency Involvement: NO DJFS, WIC, HMG, Counseling, legal or CSB involvement. FOB: Benoit Time Together: 8 years Involved at : Yes, FOB will take one month of paternity leave from his job as an engineering consultant at [employer] Other Children: FOB is father to Aurora MIRYAM MH/ AOD/DV : Denied by FOB Maternal MH History: REMEDIOS reports that she has been taking Lexapro since HS and it works for her. Per chart MOB had discontinued Lexapro and then decided to resume it again. REMEDIOS took Lexapro during her and plans to continue to take the Lexapro. MOB does not currently participate in counseling but has in the past. KORY asked MOB about history of PPD and MOB said no.. I don't know how to answer that. SW discussed symptoms of PPD. MOB denied SI/HI. SW educated MOB that if symptoms of weepiness, tearfulness and crying and not sure why are present for 4 or more days or if patient is unable to get out of bed then MOB needs to call her MD and MOB verbalized understanding. MOB and FOB were educated on Shaken Baby Syndrome, PPD and Safe Sleeping. MOB reports no alcohol or drug use. MOB is not a smoker MOB completed PHQ-2 with score of 0. Plan: Home at discharge Carmencita SHANKAR
== END 2022-02-28 16:25 | disposition home or self-care (01) | DRG 788 ==
LOC: WPOUT 04:43 → WP 04:43
PROVIDERS: Admitting Provider Obstetrics & Gynecology; PCP Family Medicine; Visit Provider Obstetrics & Gynecology
DX: O34.211 Maternal care for low transverse scar from previous cesarean delivery (principal); Z37.0 Single live birth; Z3A.38 38 weeks gestation of pregnancy
CPT/HCPCS: 59025; 59050; 85025; 85027; 86850; 86900; 86901; 87426; 99218; J7120; 90686; A4216; G0378

== ENCOUNTER 2023-02-12 08:00 | Outpatient (RCR) | payer BC, SELFPAY ==
--- NOTE | 2023-02-12 11:55 | BH.NA ---
Physical Data Vital Signs Pulse Rate: 50 Blood Pressure: 124/58 Height/Weight Height: 1.69 m Weight:: 69.4 kg Weight in Pounds: 153.0 lbs Current Medication Compliance Medication Compliance Do you take your medication as prescribed?: Yes Nutritional History Appetite Nutritional Instructions: Describe your appetite:: Fair Additional nutritional information:: Client states recently her appetite has been slightly decreased and she has lost a small amount of weight due to stress. Functional Assessment Sleep Pattern Describe any problems with sleeping: Client states she has been sleeping an average of 5 hours per night. Sensory/Communication Assess Communication Problems Do you have difficulty understanding what people are saying?: No Medical Problems/History Cardiac Conditions Cardiovascular: Other (See comments) (history of one episode of pericarditis in college) Pain Assessment Do you have acute or chronic pain?: No Surgical History Surgical History Have you had any surgeries? If so, list type and date:: Yes ( x2, hernia repair) Substance Abuse Substance Abuse Please describe substance abuse in the last 30 days:: Client denies alcohol, tobacco or substance use. Client states she has recently cut all caffeine use out. Mental Status Summary Mental Status Significant Findings/Observations on Appearance and Mood:: Client is alert and oriented x 4. Client is casually groomed with good hygiene. Client makes good eye contact. Client's voice has normal rate and volume. Client has appropriate affect. Client makes logical associations and has normal processing. Client denies delusions/hallucinations. Client denies SI. Suicide Assessment Suicidal Ideation Are you currently or have you been suicidal in the past?: No Suicidal Intentional Rating Scale (SIRS): No suicidal thoughts (past or present) Physician Notification Past Psychiatric History MH Treatment Hx Past Psychiatric Medications:: Lexapro (took for about 15 years) Age of first mental health symptoms: Client was first on medication for mental health around age 18, but states her anxiety dates back into childhood. Describe (age, circumstance, etc) any past hospitalizations: None. Current providers for mental health treatment (counselor, psychiatrist, case checker, etc.): Trish BONILLA at [address] psychiatry Fall Risk Assessment Age Age: Less than 60 Mental Status Mental Status: Willing & able to ask for assistance when needed Physical Status Physical Status: No problems Impairments Impairments: None Elimination Elimination: Continent AND independent Gait or Balance Gait or Balance: Walks independently Hx of Falls History of falls in the past 6 months: No known history Medications/Substances Psychotropics:: Antidepressants Medications/substances used within the past 24 hours or ordered to administer: 1-2 of the medications/substances listed above Total Score Total Points:: 1 RN Summary of Impressions Impressions Recommendations Impressions: Psychiatric Issues: 1. Generalized anxiety disorder 2. Major depression, recurrent, moderate 3. Panic disorder Level of Care How do the client's current symptoms and functional deficits support need for this level of care?: Client was referred to IOP by her outpatient psychiatry provider for panic attacks and intrusive thoughts. Client states for about 2 months, she has been having daily panic attacks and states I just feel like I have a high anxiety level all day long, mornings are especially worse Client reports racing thoughts, crying episodes and constant worry. Client states she does not know specific trigger for panic attacks. IOP will promote gains and prevent further decompensation while providing social support and skills training.
[2023-02-12 12:10] VITALS: BP 124/58; PULSE 50
--- NOTE | 2023-02-12 12:42 | PCM.BH.PSYEV ---
Psychiatric Evaluation Initial Evaluation Initial Evaluation: Chief Complaint: I cannot shut my brain off. History of Present Illness: [] The patient is a 32-year-old female with a history of anxiety who was referred to the [facility] by her psychiatric providers at [place] [address] for worsening anxiety. The patient currently lives with her and her 1-year-old and 3-year-old children. Patient describes her marriage is good. The patient works full-time at her mother's [employer] and she likes the work enough but is uncertain that she wants to take it over when her mother retires. The patient has a long history of anxiety which has worsened in the past few months. The exacerbation began when she panicked 1 night the night before she had a planned day of vacation. The patient states that she likes to be busy and she often feels anxious or panicked when she contemplates a day off. Following several days of severe anxiety she then got in a funk and remained anxious and got somewhat down. She states that she has daily feelings of panic with increased heart rate and feeling warm and feeling a sense of impending doom. This last almost all day lately and is not so much a discrete panic attack in recent weeks. She has constant and worthless which she describes as intrusive thoughts which involve worry about ordinary issues in life such as what why cook for dinner for the rest of my life, what is the point of living, NH good enough it what I do. These thoughts overall are ego-syntonic. The patient describes herself as always being perfectionistic and hard-working. She denies any rituals ever. For primary support she has her , parents and friends. She has been feeling her worst anxiety in the morning when she wakes up. She has been exercising by running or lifting weights and other things to help decrease this anxiety in the morning and it has helped somewhat. She has cut all her use of caffeine out for several months. Her mood is sad and down with occasional crying. She feels occasionally hopelessness and feels chronically inadequate but denies worthlessness. She enjoys being with her children but not much else lately. Appetite is okay or maybe a little decreased and she has had an unintentional weight loss of several pounds in the past few months. She is sleeping on average 5 to 6 hours a night but the ranges from 4 to 7 hours a night. She goes to bed around 10 PM and sometimes wakes up early around 2:58 in the morning and cannot get back to sleep. Energy level is overall okay but occasionally low. Concentration is decreased. She denies passive thoughts of , guilt, homicidal ideation, hallucinations, delusions or floresita ever. She does admit to fleeting, passive suicidal ideation in recent weeks but denies any plan for suicide or any intent. She wants to feel better and does not want to live her life in this way. She is a worrier by nature and ruminates negatively and describes racing thoughts of worry. She denies OCD, eating disorder, trauma, PTSD, seizure or head trauma. Another stressor is that 4 months ago a young coworker of her 's very young and the patient then had a hernia and had some COVID testing that showed increased lymph nodes and she was worried she also was possibly had a cyst illness that might cause . No history of self-harm. Current Psychiatric Medications: [] Prozac 40 mg p.o. daily (started Prozac for 5 weeks ago and the dose was increased to 60 mg recently but then was decreased back down to 40 mg 1 day ago as the patient had side effects). Hide, hydroxyzine 25 mg 1 p.o. nightly, melatonin nightly. Past Psychiatric History: [] No psych admits ever. No suicide attempts ever. She first took medications at age 13 for test anxiety and fear of speaking in public. She was on Lexapro for over 15 years to 20 years and 20 mg was the highest dose. In college the patient had a similar episode of worsening anxiety and then depression with her thoughts then worry revolving around self-doubt and low self-esteem thoughts. She has had counseling off-and-on since college a few times only. She recently had Social IQ (Social Influence Quotient)ight testing and the results should be back in less than 1 week. Substance Use History: [] Non-smoker. No vaping. No drugs, alcohol or marijuana. Allergies: [] No known allergies Medications: [] Iron supplement, multivitamin, magnesium and B3 Past Medical History: [] No medical illnesses but does have a history of anemia while . She has had 2 sections but no other surgeries except 1 hernia repair last year. She is a 2 para 2 Ab0 female with regular menstrual periods. Family Psychiatric History: [] Mother is 65 years old and father is 68 years old. Father has anxiety. No suicides in the family and no drug or alcohol problems in the family. Personal/Social History: [] The patient was born and raised in [facility] and describes her childhood as awesome. She denies any verbal, sexual or physical abuse ever. Her parents were and are and were loving to her. Her father is a little bit controlling but she has a close relationship with him. She has 1 sister 3 years older and they are close. She pressured herself in school and worked very hard and obtained a's in school. She had anxiety over taking tests and reading out loud in grade school and high school. 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 She got at age 25 and her is 32 years old and he is an environmental engineering intern and is supportive of the patient. They have 2 healthy children age 1 and age 3. Legal History: [] No arrests. 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 She is able to but sometimes is a little afraid or nervous about driving. Review of Systems: [] Review of systems is negative except as noted in the present illness. Vital Signs: [] Vital signs are revealed in the nurses notes and updated and the patient is deemed medically able to participate in the IOP. Mental Status Examination: [] The patient is a 32-year-old female who appears normal for stated age and is casually dressed and groomed with good hygiene. She is ambulatory with a normal gait and is cooperative during the interview. Eye contact is good and speech is normal rate and rhythm and fluent with no pressure. She has no psychomotor agitation or retardation. Mood is anxious and depressed. Affect is constricted and tearful at times. Thought process is goal-directed and organized. Thought content: There is evidence of passive, fleeting suicidal ideation with no plan. There is no evidence of passive thoughts of , active suicidal ideation, homicidal ideation, hallucinations, delusions or floresita. Reality testing is intact. Intelligence is above average. Judgment is intact. Insight is fair to good. Labs and testing done a few months ago. Diagnoses: [] 1. Generalized anxiety disorder 2. Major depression, recurrent, moderate 3. Panic disorder Plan: [] The patient will start the IOP in behavioral health at [facility] as the structure, support, education and group therapy will hopefully prevent worsening of the patient's symptoms which could require hospitalization. She felt safe during the interview and if it anytime she does not feel safe she will let us know or go to the emergency room. The risk, options, complications and side effects of the medications were discussed with the patient and she understands and accepts these. The patient does not want any weight gain with medications. Since the patient's GeneSight should be here in less than 1 week we will wait for this to make any medication changes. She will continue for now her Prozac 40 mg p.o. daily. She is also given trazodone 50 mg p.o. nightly as needed for sleep. In addition Ativan 0.5 mg as prescribed and she is to take a half a tablet in the morning for severe panic. The patient will continue to follow-up with her outpatient providers and I will see the patient in 1 week. She will give us the results of her GeneSight testing when it returns and we will decide whether to augment her Prozac or wean it and try something different based on the testing results. The patient refuses Remeron to help with sleep and anxiety as she does not want weight gain.
--- NOTE | 2023-02-12 12:57 | BH.DR.ITP ---
Initial Treatment Plan Patient Information Visit Information: ADMISSION DATE: EXPECTED LOS: 4-6 weeks Problems/Symptoms Problem #1:: Anxiety Symptom:: Worry, rumination, panic attacks, intrusive thoughts Problem #2:: Depression Symptom:: Sadness, hopelessness, feelings of inadequacy, biological disruption of sleep and appetite, decreased concentration, fleeting, passive suicidal ideation.
--- NOTE | 2023-02-12 15:24 | BH.COMM_ITS ---
Communication Note Communication with Client Communication Note: Met with pt to complete initial paperwork and complete the CSSR-S scale and risk assessment. No significant changes since admission. Pt is low risk per the CSSR-S and risk assessment as pt has no report of suicidal thoughts or history of attempts. Pt shared she will have intrusive thoughts about suicide and then immediately feel anxious about these thoughts. Many protective factors including being future oriented and having two children. No weapons. Discussed with tx team and Dr. Higgins and will be admitted to [facility] tx with diagnosis of MDD, recurrent, severe, without psychosis F33.2
--- NOTE | 2023-02-14 10:20 | BH.SGPN.GN ---
Behaviors/Verbalizations/Mental Status: [] Eye contact is fair. Motor activity is appropriate. Appearance is casual. Speech is Appropriate. Mood is anxious. Affect is congruent. Thoughts are linear and logical. No evidence of psychosis. Client Response/Progress/Benefit: [] Pt was an active participant in group discussions AEB listening attentively to others and providing feedback at times. Participated in and was engaged during experiential activity. Able to relate activity to group topic of FOF. Engaged during interactive discussion on what failure means to the group in which peers identified and defined failure. Group was able to identify impact of fear of failure on mental health. Attentive during interactive discussion on the role that FOF plays in mental wellness, depression, anxiety, and growth. Benefited from increased awareness of how the role that FOF plays in mental health and decision-making. Will continue in IOP to stabilize mood, prevent decompensation, and decrease panic attacks. Narrative Note: []
--- NOTE | 2023-02-14 11:15 | BH.SGPN.GN ---
Behaviors/Verbalizations/Mental Status: []Pt alert and oriented, casually dressed and groomed. Eye contact good. Motor activity appropriate. Speech within normal limits. Affect congruent, mood depressed and anxious. Thoughts linear, logical, no signs of hallucinations or delusions. Client Response/Progress/Benefit: [] Pt responded well to session, engaged in the experiential activity and attentive throughout group processing. Pt reported fear of failure has kept Pt from making a decision on her future career goals. Pt completed fear of failure worksheet and was able to identify thoughts and behaviors that reinforce personal fear of failure including: negative thinking, self-comparisons, feeling pressure to be perfect. Pt participated in group discussion regarding strategies to overcome fear of failure. Identified wanting to work on starting to improve positive self-talk and making small attainable goals. Appeared to benefit from increased knowledge of strategies to combat fear of failure and gaining self-awareness. Pt will continue IOP tx to improve mood stability, improve self-compassion, and prevent decompensation. Narrative Note: []
--- NOTE | 2023-02-14 15:21 | BH.PSA ---
Source of Information Presenting Problems/Circumstances Problems, Referral Source, Mental Status, Client: The patient is a 32-year-old female with a history of anxiety who was referred to the [facility] by her psychiatric providers at [place] [address] for worsening anxiety. Psychiatric Presentation Psych Issues & Need for Admission Psychiatric Issues:: Anxiety, depression, panic Past Psychiatric History MH Treatment Hx Treatment History: No psych admits ever. No suicide attempts ever. She first took medications at age 13 for test anxiety and fear of speaking in public. She was on Lexapro for over 15 years to 20 years and 20 mg was the highest dose. In college the patient had a similar episode of worsening anxiety and then depression with her thoughts then worry revolving around self-doubt and low self-esteem thoughts. She has had counseling off-and-on since college a few times only. She recently had Storm Player testing and the results should be back in less than 1 week. First hospitalization:: Denies Medication Trials:: Yes (hydroxyzine, prozac) ECT Therapy:: No Age of first mental health symptoms: Reports anxiety throughout much of her life Current providers for mental health treatment (counselor, psychiatrist, mattress spring encaser, etc.): In process of establishing with a new therapist. Psychiatry through [place] [id number] Development & Family of Origin Childhood Significant Childhood Events: The patient was born and raised in [facility] and describes her childhood as awesome. She denies any verbal, sexual or physical abuse ever. Her parents were and are and were loving to her. Her father is a little bit controlling but she has a close relationship with him. She has 1 sister 3 years older and they are close. She pressured herself in school and worked very hard and obtained a's in school. She had anxiety over taking tests and reading out loud in grade school and high school. 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 Family Who currently lives in your home?: Pt, her , and 2 children Describe family composition:: Pt is the youngest of 2 children. She has a sister 3 years older. Her parents are still and these are positive relationships. Pt is for 7 years and has two boys ages 1 and 3 Family History Family Hx of Psychiatric or AOD Problems: Mother is 65 years old and father is 68 years old. Father has anxiety. No suicides in the family and no drug or alcohol problems in the family. Ethnicity Culture Do you identify yourself with any particular cultural, ethnic background, or community?: No Sexuality Sexual Orientation: Heterosexual Spirituality Scientologist Do you currently identify with any organized latter-day?: Evangelical Beliefs Is there a particular form of support from this community you can use for your recovery?: Yes Mental Status Memory Recent Memory: Good Remote Memory: Good Concentration Concentration: Good Eye Contact Eye Contact: Good Speech Speech: Pressured Thought Process Thought Process: Logical, Obsessions and Ruminations Insight: Fair Judgment: Fair Behavior: Anxious Orientation Orientation: Time, Person, Place and Situation Appearance Appearance: Neat/clean Mood Mood: Anxious and Depressed Affect Affect: Appropriate/calm Suicide Assessment Suicidal Ideation Have you ever felt like hurting yourself?: No Physician Notification Violent Behavior/Abuse History Homicidal Ideation Do you have any homicidal thoughts? If so, explain:: No Abuse Have you ever been abused?: No Life Events Are there any other significant life events?: Hardships (difficulties choosing what she wants to do occupationally) Safety Do you ever feel threatened in your home? 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 If yes, describe:: No Court Orders Have you had any past court orders for psychiatric treatment?: No Do you have a present court order for psychiatric treatment?: No Problem Checklist Current Problem Areas Problem List: Depressed mood/sad, Anxiety, Sleep problems and Additional psychosocial stressors (deciding on next steps in career) Discharge Planning Needs Anticipated Follow-Up Mental Health Center (Name/Phone Number):: [facility] Private Therapist/Psychiatrist:: Elaine Song for psych and would like referrals for outpatient counseling Family and Caregiver Contacts:: Release of Information Signed:: Yes Diagnoses Diagnoses Diagnosis #1:: Generalized anxiety disorder Diagnosis #2:: Major Deprissive Disorder, recurrent, severe, w/o psychosis Diagnosis #3:: Panic Disorder Interpretive Summary Interpretive Summary Interpretive Summary: The patient is a 32-year-old female with a history of anxiety who was referred to the [facility] by her psychiatric providers at [place] [address] for worsening anxiety. The patient works full-time at her mother's [employer] and she likes the work enough but is uncertain if she wants to take it over when her mother retires which is a major stressor for her. The patient has a history of anxiety which has worsened in the past few months when she panicked 1 night the night before she had a planned day of vacation. The patient states that she likes to be busy and she often feels anxious or panicked when she is not. She states that she has daily feelings of panic with increased heart rate and feeling a sense of impending doom. She has constant intrusive thoughts which involve worry about ordinary issues in life such as what why cook for dinner for the rest of my life, what is the point of living, am I good enough it what I do. The patient describes herself as always being perfectionistic and hard-working. She has been feeling her worst anxiety in the morning when she wakes up. Her mood is sad and down with occasional crying. She occasionally feels hopelessness and feels chronically inadequate but denies worthlessness. She does admit to fleeting, passive suicidal ideation in recent weeks but denies any plan for suicide or any intent. She wants to feel better and does not want to live her life in this way. She is a worrier by nature and ruminates negatively and describes racing thoughts of worry. Current symptoms are impacting her ability to function socially, occupationally, and emotionally.
--- NOTE | 2023-02-14 15:21 | BH.MDN_ITS ---
Multi-Disciplinary Note Note 60-min Individual: Time Started:: 09:03 Date: 02/14/23 Purpose of session/treatment goals addressed:: Purpose of session was to build rapport, gather background information, and identify treatment goals for IOP. Eye Contact:: Good Motor Activity:: Appropriate Appearance:: Neat and Casual Speech:: Appropriate Mood:: Anxious and Dysthymic Affect:: Congruent Thoughts:: Linear, Logical and No evidence of hallucinations/delusions noted Staff Interventions:: motivational interviewing, CBT techniques, rapport building, strengths perspective, treatment planning and goal setting Client Response:: Client responded well to session, engaged and openly discussed history, current sx, and treatment goals throughout. Client stated she has struggled with anxiety for much of her life but not to the current extent. Reports she has experienced anxiety at the current level once before when she was in college and with therapy along with medication she had been able to see progress. Stated that her sx have been worsening over the past year and culminated to the point of crisis a few months ago when faced with an unstructured day off and not knowing how to manage. Noted primary stressors include caregiving for her children (ages 3 & 1), determining if she wants to take over her mother?s [employer] business or seek an alternate career path, and a recent medical scare following a hernia repair. Pt reports current symptoms include racing and ruminating thoughts, worries about the future, restlessness, poor sleep, hopelessness, poor concentration, and some intrusive thoughts. Client reported while in IOP she wants to learn how to manage her anxious symptoms. Client reported her anxiety has been significantly impacting her ability to focus at work or be present when engaging with family, and has led to increase self-criticism and fears she is ?going crazy?. Reports wanting to work on being more comfortable with practicing relaxation skills as well. Risks/Concerns:: Denies suicidal ideation, plan, and intention. Future oriented. Protective factors include her family, children, and her goals for the future. Progress Toward Goals/Plan:: Progress limited as this is pt 2nd day in the IOP program. Client continues to struggle with significant anxious thoughts that hinder her ability to be present, concentrate, and engage in things she used to enjoy. Client would like to focus on learning skills and strategies that help manage the anxiety and get her back to functioning. Client to continue IOP to increase healthy coping, improve daily functioning, and prevent decompensation. Time Stopped:: 09:58
--- NOTE | 2023-02-14 15:42 | BH.MTP_ITS ---
Master Treatment Plan Patient Information Program Physician:: Dr. Fabiana Mills Primary Therapist:: ALIVIA Lewis Psychiatric Diagnoses Psychiatric Diagnoses:: 1. Generalized anxiety disorder 2. Major depression, recurrent, moderate 3. Panic disorder Diagnosis Code(s):: F41.1 Estimated LOS Estimated LOS (in weeks):: 6 Problem/Goal #1 Problem/Goal #1 Stated Goal:: Client will reduce overall frequency, intensity, and duration of anxiety and panic to improve functioning. Description of Barriers: Pt has uncertainty regarding her occupational goals and plans for her future that could continue to impact pt's mental health even after IOP tx. Pt reports avoidance, negative thinking patterns, and lack of energy. Pt additionally is the primary caregiver of her two young children which causes pt a lot of excess stress and anxiety. Functional Impact: The patient is a 32-year-old female with a history of anxiety who was referred to the [facility] by her psychiatric providers at [place] [id number] for worsening anxiety. The patient works full-time at her mother's [employer] and she likes the work enough but is uncertain if she wants to take it over when her mother retires which is a major stressor for her. The patient has a history of anxiety which has worsened in the past few months when she panicked 1 night the night before she had a planned day of vacation. The patient states that she likes to be busy and she often feels anxious or panicked when she is not. She states that she has daily feelings of panic with increased heart rate and feeling a sense of impending doom. She has constant intrusive thoughts which involve worry about ordinary issues in life such as what why cook for dinner for the rest of my life, what is the point of living, am I good enough it what I do. The patient describes herself as always being perfectionistic and hard-working. She has been feeling her worst anxiety in the morning when she wakes up. Her mood is sad and down with occasional crying. She occasionally feels hopelessness and feels chronically inadequate but denies worthlessness. She does admit to fleeting, passive suicidal ideation in recent weeks but denies any plan for suicide or any intent. She wants to feel better and does not want to live her life in this way. She is a worrier by nature and ruminates negatively and describes racing thoughts of worry. Current symptoms are impacting her ability to function socially, occupationally, and emotionally. Objectives Objective #1: Stated Objective: Pt will identify 2-3 anxiety triggers and 2 coping skills to use when feeling anxious to manage anxiety as shown by reducing DSM-5 scores for anxiety Interventions: Therapist will provide education on anxiety, avoidance behaviors, and maintenance cycles. Therapist will help pt explore personal symptoms and warning signs of anxiety. Therapist will teach pt coping skills to improve emotional regulation, mindfulness, and distress tolerance to help pt cope with anxiety in the moment. Discharge Criteria: Pt will have accomplished this goal when she can identify at least 2 triggers and report using 2 coping skills to manage anxiety. Additionally, pt will have accomplished this goal AEB reduction of DSM-5 scores for anxiety. Target Date: 03/26/23 Review Date: 03/05/23 Objective #2: Stated Objective: Client will identify 2-3 cognitive distortions that lead to rumination and learn 2-3 ways to manage these thoughts to better manage anxiety. Interventions: Teach mindfulness meditation to help the client recognize the negative thought processes associated with panic and change his/her relationship with these thoughts by accepting thoughts, images, and impulses that are reality-based while noticing, but not reacting to, [id number] mental phenomena. Therapist will use CBT and DBT techniques to help client gain awareness of thinking errors and learn how to more effectively handle negative t houghts. Discharge Criteria: Pt will have completed this goal when she can identify and replace distorted thinking patterns which contribute to ongoing anxiety sx. Target Date: 03/26/23 Review Date: 03/05/23 Problem/Goal #2 Problem/Goal #2 Stated Goal:: Pt will increase mood stability by reducing hopelessness, passive suicidal ideation, and negative thinking patterns caused by MDD. Description of Barriers: Pt has uncertainty regarding her occupational goals and plans for her future that could continue to impact pt's mental health even after IOP tx. Pt reports avoidance, negative thinking patterns, and lack of energy. Pt additionally is the primary caregiver of her two young children which causes pt a lot of excess stress and anxiety. Functional Impact: The patient is a 32-year-old female with a history of anxiety who was referred to the [facility] by her psychiatric providers at [place] [address] for worsening anxiety. The patient works full-time at her mother's [employer] and she likes the work enough but is uncertain if she wants to take it over when her mother retires which is a major stressor for her. The patient has a history of anxiety which has worsened in the past few months when she panicked 1 night the night before she had a planned day of vacation. The patient states that she likes to be busy and she often feels anxious or panicked when she is not. She states that she has daily feelings of panic with increased heart rate and feeling a sense of impending doom. She has constant intrusive thoughts which involve worry about ordinary issues in life such as what why cook for dinner for the rest of my life, what is the point of living, am I good enough it what I do. The patient describes herself as always being perfectionistic and hard-working. She has been feeling her worst anxiety in the morning when she wakes up. Her mood is sad and down with occasional crying. She occasionally feels hopelessness and feels chronically inadequate but denies worthlessness. She does admit to fleeting, passive suicidal ideation in recent weeks but denies any plan for suicide or any intent. She wants to feel better and does not want to live her life in this way. She is a worrier by nature and ruminates negatively and describes racing thoughts of worry. Current symptoms are impacting her ability to function socially, occupationally, and emotionally. Objectives Objective #1: Stated Objective: Pt will learn and utilize 2-3 healthy coping strategies to better manage depressive symptoms and reduce suicidal ideations as shown by a decrease of DMS-5 symptoms for depression. Interventions: Through group and individual sessions, therapist will help pt identify triggers and warning signs of depression including emotional, physical, and behavioral changes. Therapist will teach pt various coping skills to manage symptoms and give pt tangible resources to use to regulate emotions. Therapist will use cognitive restructuring techniques and help pt gain awareness of negative thoughts that reinforce guilt and depression. Therapist will provide psychoeducation on maintenance cycles and help pt learn ways to break unhealthy maintenance cycles. Therapist will help pt incorporate behavioral activation and assist pt in setting SMART goals. Discharge Criteria: Pt will have met this goal when can report learning and using at least 2 coping skills to manage depressive symptoms and reduce isolation. Additionally, pt will have met this goal when pt's DSM-5 scores for depression decrease Target Date: 03/26/23 Review Date: 03/05/23 Objective #2: Stated Objective: Pt will identify at least 2-3 negative self-talk messages used to reinforce negative core beliefs, worthlessness, and isolation and replace thoughts with balanced, realistic messages. Interventions: Therapist will help pt identify distorted, negative beliefs about self and replace with more realistic, affirmative messages. Therapist will use CBT and DBT to help pt increase insight to the connection between thoughts, emotions, and behaviors. Therapist will encourage pt to practice thought challenging. Discharge Criteria: Pt will have achieved this goal when can verbalize at least 2 cognitive distortions and effectively replace those thoughts with affirmative messages. Target Date: 03/26/23 Review Date: 03/05/23
--- NOTE | 2023-02-19 08:52 | BH.MDN ---
Multi-Disciplinary Note Note 60-min Individual: Time Started:: 08:32 Date: 02/19/23 Purpose of session/treatment goals addressed:: Purpose of session was to address goals 1 and 2 from MTP. Eye Contact:: Good Motor Activity:: Appropriate Appearance:: Neat and Casual Speech:: Appropriate Mood:: Anxious and Dysthymic Affect:: Congruent Thoughts:: Linear, Logical and No evidence of hallucinations/delusions noted Staff Interventions:: psychoeducation on: (anxiety maintenance cycles and safety behaviors.), CBT techniques, strengths perspective and taught coping skills Client Response:: Client responded well to session, willing to arrive prior to IOP start time to meet individually. Pt shared she has purchased the ?Overcoming Unwanted Intrusive Thoughts? book and is excited to begin it. Currently pt is reading a book, ?The Non-anxious Brain?, which was recommended by a friend. Indicated she has been able to connect with various aspects, specifically the concept of ?owning up to my reality?. Pt shared that to her this means acknowledging and learning to accept her current stressors rather than run away from them. Pt was receptive of discussion on safety behaviors and anxiety maintenance cycles. Shared that for her she has struggled with pushing down or hyper-fixating on her stressors to try and prevent anxiety; however, identified that this often reinforces her anxious thoughts. Shared wanting to write down her current stressors to better be able to assess which are in her control and how she can best either adjust her perspective or change her approach to each stressor, rather than continuing to ruminate on them. Additionally, pt shared wanting to improve her ability to be in the present moment, as she finds she often disconnects and becomes consumed by her own thoughts when trying to engage with others. Pt receptive of reviewing several grounding skills and reports plans to practice one daily for the next week. Risks/Concerns:: Denies suicidal ideation, plan, or intention to date. future oriented. Progress Toward Goals/Plan:: Progress noted with client reporting decreased anxious thoughts and slight improvement with home and occupational functioning. Client still reports anxiety impacts her ability to concentrate, enjoy the present moment and continues to worry about the future. Does report improved sleep as a result of starting Trazodone. Client to continue IOP to reduce anxiety, increase use of healthy coping skills, and prevent decompensation. Time Stopped:: 09:35
--- NOTE | 2023-02-19 10:20 | BH.SGPN.GN ---
Behaviors/Verbalizations/Mental Status: []Pt alert and oriented, neatly dressed and groomed. Eye contact good. Motor activity appropriate. Speech within normal limits. Affect congruent, mood euthymic. Thoughts linear, logical, no signs of hallucinations or delusions. Client Response/Progress/Benefit: [] Pt responded well to session AEB contributing to small group discussion, taking notes, and listening attentively to others. Group discussed the benefits of managed anger and anger as a secondary emotion. Pt shared perspective on personal benefits of anger as motivated for change and communication. Pt completed worksheet on anger triggers and personal warning signs of anger. Pt shared stated she does not struggle much with anger towards others, but pt can become self-critical when she makes mistakes. Appeared to benefit from increased knowledge of the anger cycle as well as personal triggers. Will continue IOP tx to promote mood stability, reduce anxiety, and improve daily functioning. Narrative Note: []
--- NOTE | 2023-02-19 11:15 | BH.SGPN.GN ---
Behaviors/Verbalizations/Mental Status: []Client alert and oriented, casually dressed and groomed. Eye contact good. Motor activity appropriate. Speech within normal limits. Affect congruent, mood anxious. Thoughts linear, logical, no signs of hallucinations or delusions. Client Response/Progress/Benefit: []Pt was attentive throughout AEB contributing at times to small group discussion and self-reflection. Group finished processing cues to anger worksheet. Pt worked on completing own anger cycle. Pt completed personal anger cycle. Identified triggering event, negative thoughts, emotional response, physical symptoms, and behavioral response. Pt attentive as group brainstormed healthy coping skills for better managing anger which included: problem solving, walking/exercise, taking a break, grounding tools, reflection, and journaling. Pt identified personal anger cycle. Pt worked in small groups to identify healthy coping skills/strategies to manage anger. Pt identified connected with needing to be more upfront and communicative about her expectations. Pt appeared to benefit from identifying different techniques to manage anger as well as gaining awareness of potential consequences of unmanaged anger. Will continue IOP tx to improve daily functioning, increase healthy coping, and prevent decompensation.
--- NOTE | 2023-02-19 12:08 | PCM.BH.PN_ITS ---
Progress Note Progress Note: And history of Present Illness/Interim History: The patient is a 32-year-old female with a history of severe anxiety who is seen in follow- up at the [facility]. I last saw the patient 1 week ago and at that time no medication changes were made as we were waiting for the results of her [employer] psychotropic testing. Testing was reviewed with the patient and as expected Prozac is in the red section of her profile meaning she she does not metabolize it well. The patient states that the trazodone that was prescribed last time has really improved her sleep and she is now getting 7 to 8 hours of solid sleep. She feels she has improved greatly just from sleeping better. She is not waking up as panicked as she was before either. She only took the Ativan that was prescribed 1 time and she felt that it did not do much for her. She is still worrying a lot but less than before she thinks because of the IOP and because of getting better sleep. She denies any passive suicidal ideation and states that this has resolved. She also denies plan for suicide, active suicidal ideation, homicidal ideation, hallucinations or delusions. She is not having very intrusive thoughts anymore but still tends to worry. Current Psychiatric Medications: [] Prozac 40 mg p.o. daily; hydroxyzine 25 mg p.o. nightly, melatonin every evening, trazodone 50 mg p.o. nightly (x1 week; Ativan 0.5 mg as needed for severe panic attack (x1 week and only took it once) Mental Status Examination: [] The patient is a 32-year-old female who appears normal for stated age and is casually dressed and groomed with good hygiene. She is cooperative and pleasant during the interview. She is ambulatory with a normal gait. Eye contact is good and speech is normal rate and rhythm and fluent with no pressure. She has no psychomotor agitation or retardation. Mood is mildly anxious. Affect is constricted mildly. Thought process is goal-directed and organized. Thought content: There is no evidence of passive thoughts of , suicidal ideation, homicidal ideation, hallucinations or delusions. The patient is more hopeful for the future. Reality testing is intact. Intelligence is above average. Judgment is intact. Insight is good. Diagnoses: [] 1. Generalized anxiety disorder 2. Major depression, recurrent, moderate 3. Panic disorder Plan: [] The patient will continue the IOP as the structure, support, education and group therapy will hopefully prevent worsening of the patient's symptoms which could require hospitalization. She felt safe during the interview and if it anytime she does not feel safe she will let us know or go to the emergency room. The risks, options, possible complications and side effects of the medications were discussed with the patient and she understands accepts these. In addition the [facility] testing results were discussed with the patient. The patient agrees to decrease Prozac to 20 mg p.o. daily for 1 week and then 10 mg p.o. daily for 1 week and then discontinue it. She will start Zoloft 25 mg p.o. daily for 1 week and then increase it to 50 mg p.o. daily. No other medication changes were made. I will see the patient in follow-up in 2 weeks and she will continue to follow-up with her outpatient providers.
--- NOTE | 2023-02-21 09:00 | BH.SGPN.GN ---
Behaviors/Verbalizations/Mental Status: [Patient was alert and oriented, appropriately dressed and groomed. Eye contact was good, motor activity normal, speech within normal limits. Affect congruent, mood content. Thoughts linear, logical, no signs of hallucinations or delusions. Reviewed Patients symptom tracker and the patient reports low to moderate in anxiety/panic attacks and low in depressed mood. Patient does not report symptoms of agitation/irritability/anger, self-harm urges, or thoughts/risk of suicide.] Client Response/Progress/Benefit: [Patient was engaged and open to the discussion. Patient reported her mood to be ?well and anxious?. Patients first win was that she is sleeping better now that she is on a new medicine. Patient shared that because she?s sleeping better, her second win was that she was feeling better. Patient stated she hasn?t woken up in the middle of the night in panic since starting. Patient?s stressor is the program because she is getting impatient about her progress but is reminding herself that getting better will take time. Patient was interactive and respectful with other group members about their mental wins and stressors. Patient benefited from the discussion by listening to feedback and giving input on her peer?s stressors and mental health wins. Patient will continue with IOP treatment to help develop healthy skills, promote mood stability, and practice coping skills for anxiety. ] Narrative Note: []
--- NOTE | 2023-02-21 10:10 | BH.SGPN.GN ---
Behaviors/Verbalizations/Mental Status: [] Client alert and oriented, casually dressed and groomed. Eye contact good. Motor activity appropriate. Speech within normal limits. Affect congruent, mood euthymic. Thoughts linear, logical, no signs of hallucinations or delusions. Client Response/Progress/Benefit: [] Client was an active participant, AEB taking notes and providing input in group discussions and activities. Attentive during psychoeducation. Client engaged during interactive discussion in which the group defined self-care and discussed its benefits. Group discussed barriers to engaging in self-care. Client identified personal barrier of children and needing to tend to their needs that prevents making time for self care. Client participated in small groups where they worked to identify common self-care ?myths?. Benefited from increased awareness of self-care, its benefits, and the consequences of not utilizing self-care strategies. Will continue IOP tx to prevent decompensation, promote healthy coping skill application, and increase self care. Narrative Note: []
--- NOTE | 2023-02-21 11:10 | BH.SGPN.GN ---
Behaviors/Verbalizations/Mental Status: [] Client alert and oriented, neatly dressed and groomed. Eye contact good. Motor activity appropriate. Speech within normal limits. Affect congruent, mood euthymic. Thoughts linear, logical, no signs of hallucinations or delusions. Client Response/Progress/Benefit: [] Client engaged participant AEB completing self-assessment worksheet and providing input throughout discussion. Client completed worksheet identifying current self-care practices and what self-care activities client wants to start using. Client selected emotional self-care to begin practicing more consistently. Client plans to do this by giving herself manny and taking mindful breaths with practicing patience. Appeared to benefit from completing the self-care evaluation and gaining insights into current self-care practices, as well as identifying areas in which Client would like to improve upon. Client will continue IOP tx to prevent decompensation, increase self worth, and improve daily functioning. Narrative Note: []
--- NOTE | 2023-02-26 09:00 | BH.SGPN.GN ---
Behaviors/Verbalizations/Mental Status: [] Eye contact is good. Motor activity is appropriate. Appearance is casual. Speech is Appropriate. Mood is depressed. Affect is congruent. Thoughts are linear and logical. No evidence of psychosis. Reviewed daily check in sheet and pt reports 1/5 for suicidal ideations and 0/5 for intent. Client Response/Progress/Benefit: [] Participated at times during the group discussion. Attentive. Daily symptom tracker notes 3/5 for depression and irritability and 2/5 for anxiety. Pt reprots distress related to recent mental health regression which she attributes to medication changes. She talked briefly about the reasons for the medication changes as well as some of the issues. It was necessary to change but I was hoping that it did not impact me. Emotion for today is distress. Regression noted per pt report. Benefited from group support, encouragement, and feedback. Group normalized struggles and emotions associated with them. Will continue in IOP to prevent decompensation, increase healthy coping, and stabilize mood. Narrative Note: []
--- NOTE | 2023-02-26 11:10 | BH.SGPN.GN ---
Behaviors/Verbalizations/Mental Status: []Pt alert and oriented, casually dressed, appropriately groomed. Eye contact good. Motor activity appropriate. Speech within normal limits, mostly quiet. Affect congruent, mood anxious. Thoughts linear, logical, no signs of hallucinations or delusions. Client Response/Progress/Benefit: [] Pt was engaged during discussion and willing to complete the worksheet challenging them to develop a personal SMART goal. Pt chose the goal of examining her thoughts and letting them pass. Pt stated this will benefit pt by allowing pt to reduce control of her thoughts and increase acceptance. Pt identified barriers which included being too tired, physical symptoms, and spiraling. Identified solutions such as telling herself that thoughts are thoughts not facts, deep breathing, and self-compassion. Pt receptive to identifying solutions for these barriers and willing to begin working on this goal. Benefited from this group by developing a short-term SMART goal related to mental health. Will continue IOP tx to prevent decompensation, improve daily functioning, and reduce intensity of anxious thoughts. Narrative Note: []
--- NOTE | 2023-02-28 10:05 | BH.SGPN.GN ---
Behaviors/Verbalizations/Mental Status: [] Eye contact is good. Motor activity is appropriate. Appearance is casual. Speech is Appropriate. Mood is anxious. Affect is congruent. Thoughts are linear and logical. No evidence of psychosis. Client Response/Progress/Benefit: []Pt engaged participant AEB listening to others, engaging in activity, and providing feedback at times. Attentive during psychoeducation and provided insight into obstacles in the way of mental wellness. Pt shared with group current mental health reality and desired mental health reality. Stated coming to IOP as one step she is currently making to get closer to desired reality. Identified barriers to desired reality include: unrealistic expectations, fear of failure, self-doubt, avoidance of issues, and physical symptoms. Benefited from taking look at current mental health state and obstacles for progress. Pt to continue IOP to decrease anxious safety behaviors, improve functioning, and prevent decompensation.
--- NOTE | 2023-02-28 10:10 | BH.SGPN.GN ---
Behaviors/Verbalizations/Mental Status: []Eye contact is good. Motor activity is appropriate. Appearance is casual. Speech is Appropriate. Mood is euthymic. Affect is congruent. Thoughts are linear and logical. No evidence of psychosis. Client Response/Progress/Benefit: []Pt was an active participant in group discussion. Attentive during psychoeducation on SMART goals. Participated in experiential activity. Engaged during interactive discussion on the benefits of setting goals which group identified as; increase self-worth, increase confidence, can motivate us, can lead to personal growth, and can give one a sense of purpose. Participated during interactive discussion on possible obstacles to obtaining goals and pt self-identified barriers as racing thoughts and anxiety about the future?. Benefited from increased understanding of benefits of goals, obstacles to obtaining goals, and methods for setting appropriate goals (SMART goals). Will continue in IOP to prevent decompensation, improve mood stability, and further improve current functioning. Narrative Note: []
--- NOTE | 2023-02-28 11:10 | BH.SGPN.GN ---
Behaviors/Verbalizations/Mental Status: [] Eye contact is good. Motor activity is appropriate. Appearance is casual. Speech is Appropriate. Mood is anxious and dysthymic. Affect is congruent. Thoughts are linear and logical. No evidence of psychosis. Client Response/Progress/Benefit: []Pt responded well to session, actively engaged throughout. Provided input during discussion on what potential internal barriers may be keeping them from reaching their desired reality. Pt was an active participant throughout the interactive activity in which group members problem solved the various internal barriers each pt reports struggling with. Pt identified wanting to work on personal barrier of ?fear I will be like this forever? and shared plans to remind herself of the times she has felt this way and made it through it as a means of overcoming this barrier. Pt appeared to benefit from brainstorming skills to overcome internal barriers, as well as support of the group. Will continue in IOP tx to prevent decompensation, promote skill application, and further encourage use of thought skills. ? Narrative Note: []
--- NOTE | 2023-02-28 12:14 | BH.MDN_ITS ---
Multi-Disciplinary Note Note 60-min Individual: Time Started:: 08:50 Date: 02/28/23 Purpose of session/treatment goals addressed:: Purpose of session was to address goal 1 from MTP, as well as aid pt in identifying and challenging thoughts reinforcing inappropriate guilt. Eye Contact:: Good (tearful) Motor Activity:: Appropriate Appearance:: Neat and Casual Speech:: Pressured Mood:: Anxious and Depressed Affect:: Congruent Thoughts:: Linear, Logical, Racing and No evidence of hallucinations/delusions noted Staff Interventions:: thought challenging, psychoeducation on: (inappropriate guilt), CBT techniques and strengths perspective Client Response:: Client responded well to session, actively engaged throughout and openly discussed stressors and symptoms impeding pt progress. Pt shared she continues to feel the Trazadone has been helping some with sleep, however she did note feeling less calm and more anxious this morning. Expressed frustration as pt is implementing several skills such as exercise and mediation in efforts to reduce anxiety in the morning. Did well to practice self- compassion upon prompting and remind herself that progress takes time. Went on to discuss that although pt had been uncertain about groups, she connected with the lesson on Friday and felt more encouraged as a result. Reports not knowing why her thoughts continue to race outside of the tx environment and often worries ?something is wrong with me? or ?I?m going to feel this way forever?. Recognizes that these are distortions and did well in session to challenge. However, self-reports ongoing difficulties in doing so on her own. 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 Pt shared that although she does not ?hate? the work, it is not something she finds particularly enjoyable. 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 Noted that although these were more enjoyable to her, she feels she would be letting her family down or not ?achieving enough? career-ibrahim. Receptive of working with therapist to identify evidence against these thoughts. Pt reflected that her family has never said they would be disappointed if she did not take over and have only shared concerns about pt having no plan. Additionally, pt provided insight that her mother started the business as a means of doing something she enjoys and not with the intent of it being a huge success. Reports that logically she believes her mother would want the same for her. Pt identified plans to sit down soon and discuss this more with her mother to reduce use of mind-reading and predicting the future distortions. Risks/Concerns:: Denies suicidal ideation, plan, or intention to date. future oriented. Progress Toward Goals/Plan:: Progress noted with client reporting decreased morning anxiety, though still present. Reports ongoing ruminating thoughts throughout the day which has begun to impede her concentration and reinforce self-doubts/fear she is damaged. She does however do well to challenge these thoughts in session. Is receptive of implementing new skills in daily routine as well. Client to continue IOP to continue to reduce anxiety, increase use of thought challenge skills, and prevent decompensation. Time Stopped:: 09:54
== END 2023-03-04 23:59 ==
LOC: BHIOP 08:00
PROVIDERS: PCP Family Medicine; Referring Provider Psychiatry & Neurology Psychiatry; Visit Provider Psychiatry & Neurology Psychiatry
DX: F41.1 Generalized anxiety disorder (principal); F33.1 Major depressive disorder, recurrent, moderate; F41.0 Panic disorder [episodic paroxysmal anxiety]
CPT/HCPCS: S9480; 90837; 90853

== ENCOUNTER 2023-03-05 06:49 | Outpatient (RCR) | payer BC, SELFPAY ==
[2023-03-05 00:54] VITALS: BP 124/58; PULSE 50
--- NOTE | 2023-03-05 10:10 | BH.SGPN.GN ---
Behaviors/Verbalizations/Mental Status: [] Eye contact is good. Motor activity is appropriate. Appearance is casual. Speech is Appropriate. Mood is anxious. Affect is congruent. Thoughts are linear and logical. No evidence of psychosis. Client Response/Progress/Benefit: [] Pt was an active participant in group discussions and experiential activity. Participated during interactive discussion in which group worked together to define resilience (i.e. continuing to bounce back from hardship; willingness to keep trying) and identify benefits of resilience. Participated during interactive discussion on if resilience is something we are born with or can learn. Provided appropriate thoughts and feedback. Able to relate the experiential activity back to topic of resilience. Worked well in small groups to identify strategies to build resilience. Benefited from increased awareness of the role of resilience in mental health and ways to build resilience. Will continue in IOP to prevent decompensation, increase healthy coping, and to stabilize anxiety. Narrative Note: []
--- NOTE | 2023-03-05 11:10 | BH.SGPN.GN ---
Behaviors/Verbalizations/Mental Status: []Pt alert and oriented, casually dressed and groomed. Eye contact good. Motor activity appropriate. Speech within normal limits. Affect congruent, mood anxious. Thoughts linear, logical, no signs of hallucinations or delusions. Client Response/Progress/Benefit: [] Pt responded well to session AEB completing the resilience worksheet provided. Pt actively participated in the discussion and worked cooperatively with group to identify strategies to enhance each of the components discussed. Pt reports belief they already use resilience traits of making connections, taking decisive action, and self-awareness. Pt discussed that they could work more on avoiding seeing crises as insurmountable problems. Pt seemed to benefit from discussing strategies for improving personal resilience and identifying resilience traits Pt already possesses. Will continue IOP tx to prevent decompensation, improve distress tolerance skills, and reduce safety behaviors. ??? Narrative Note: []
--- NOTE | 2023-03-05 11:46 | PCM.BH.PN ---
Progress Note Progress Note: And history of Present Illness/Interim History: The patient is a 32-year-old female with a history of severe generalized anxiety disorder who is seen in follow-up at the [facility]. I last saw the patient 2 weeks ago and at that time we reviewed her GeneSight testing and the decision was made to start Zoloft and to wean her Prozac and discontinue in 2 weeks. The patient states that she is tolerating the Zoloft well and took 25 mg for 1 week and then 50 mg for another week. The patient discontinue the Prozac after only 1 week of weaning on her own and states that she feels she has had a exacerbation of her anxiety symptoms recently in the past week. She is tolerating the Zoloft well and has no side effects from it. But her anxiety is worsened and she is worrying all the time now. She also continues to look things up and read about anxiety and we are working on not doing that. She tends to focus on somatic symptoms also such as a minimal tremor at times and occasional weird feeling in her head. She is still sleeping well with the trazodone and occasionally takes 100 mg instead of 50 mg. She took 1 Ativan 2 days in the last 2 weeks for feeling panicky. She is still better than she was when she started the program 2 weeks ago but she has been has had a somewhat of a worsening during the wean and change control analyst of the medications. She denies passive thoughts of , passive suicidal ideation, plan for suicide, active suicidal ideation, homicidal ideation, hallucinations, delusions or intrusive thoughts. Current Psychiatric Medications: [] Zoloft 50 mg p.o. daily (started at 25 mg 2 weeks ago); Prozac discontinued 1 week ago by patient; trazodone 50 mg, 1-1 p.o. nightly, Ativan 0.5 mg as needed for severe panic attack. Mental Status Examination: [] The patient is a 32-year-old female who appears normal for stated age and is casually dressed and groomed with good hygiene. She is cooperative during the interview. She is ambulatory with a normal gait and has no psychomotor agitation or retardation. Eye contact is good and speech is normal rate and rhythm and fluent with no pressure. Mood is anxious. Affect is mildly constricted. Thought process is goal-directed and organized. Thought content: There is evidence of significant worry and perseverating on somatic symptoms of anxiety. There is no evidence of passive thoughts of , suicidal ideation, homicidal ideation, hallucinations or delusions. Reality testing is intact. Intelligence is above average. Judgment is intact. Insight is good. Diagnoses: [] 1. Generalized anxiety disorder 2. Major depression, recurrent, moderate 3. Panic disorder Plan: [] The patient will continue the IOP as the structure, support, education and group therapy will hopefully prevent worsening of the patient's symptoms. She felt safe during the interview and if it anytime she does not feel safe she will let us know or go to the emergency room. The risks, options, possible complications and side effects of the medications were again discussed with the patient and she understands and accepts these. The patient agrees to increase her Zoloft to 100 mg p.o. daily. In addition she can take trazodone 50 mg to 100 mg as needed for sleep daily. No other medication changes were made. Patient will continue to follow-up with her outpatient providers and I will see the patient in follow-up in several weeks.
--- NOTE | 2023-03-05 12:02 | BH.MDN_ITS ---
Multi-Disciplinary Note Note 60-min Individual: Time Started:: 09:03 Date: 03/05/23 Purpose of session/treatment goals addressed:: Purpose of session was to address tx plan goal #1, specifically focused on addressing safety behaviors. Eye Contact:: Good (tearful) Motor Activity:: Appropriate Appearance:: Neat and Casual Speech:: Pressured Mood:: Anxious and Depressed Affect:: Congruent Thoughts:: Linear, Logical, Racing and No evidence of hallucinations/delusions noted Staff Interventions:: thought challenging, psychoeducation on: (safety behaviors and establishing boundaries with self), CBT techniques, strengths perspective and goal setting Client Response:: Pt tearful upon entering session, stating ?I feel awful. I don?t know why but I feel like I?m getting worse?. Discussed becoming increasingly triggered by unexpected things causing her anxiety to spiral. Noted that her brain is ?constantly running and worrying about ?everything??, stating that ?I feel like my brin is on fire and I?ve been having tingling in my head?. Shared feeling scared and confused as to whether the somatic symptoms are solely anxiety related or if there is something else medically going on. Therapist validated and inquired further regarding the nature of her somatic sx. Pt provided insight into how these somatic symptoms occur when triggered and she begins fixating on the anxious thoughts that occur because of the trigger. Denies symptoms outside of high anxiety moments. Pt went on to discuss trying to implement the skills she has learned to manage her anxiety. Upon further exploration, pt revealed spending much of her downtime focused on reading about her anxiety to better understand and learn how to ?fix it?. Acknowledges that spending so much time learning about, thinking about, and trying to avoid anxiety is causing her to hyperfocus on her symptoms and in turn reinforcing them. Provided an example of trying to read to relax before bed but instead began to panic as she had been reading the ?overcoming unwanted intrusive thoughts? book and became fixated on whether she was engaging in ?false comfort? behaviors by telling herself ?I?m okay? when anxious. Therapist clarified what safety or false comfort behaviors are and discussed the impact pt?s fixation on her anxiety is having on her progress and ability to further reduce anxiety symptoms. Pt agreed her constant focus on her anxiety and worries about the future have been impeding her ability to enjoy engaging in other activities. Receptive of setting a goal to not read, research, or listen to any material about anxiety for the remainder of the week. Additionally, established goals to begin an accomplishment journal to begin addressing negative core belief rosibel not being capable of doing enough, as well as engaging in one activity daily for pleaser rather than to ?fix? her anxiety. Risks/Concerns:: Denies suicidal ideation, plan, or intention to date. future oriented. Progress Toward Goals/Plan:: Some regression. Pt hyper focus on her sx of anxiety and spending much of her time engaging in safety behaviors of consuming content about anxiety are preventing pt from being able to focus, be present when engaging in self-care or daily responsibilities, reinforcing negative self- talk, as well as preventing pt from seeing her own progress. Per DSM-5 scores as of review today, pt has seen a total reduction of 32% and a 22% reduction in anxiety symptoms. Pt however was unable to identify this in session, likely due to fears of not getting better and difficulties accepting the potential timeframe this may require. Pt recommended continued IOP tx to reduce engagement in safety behaviors, promote self-care activities, and prevent decompensation. Time Stopped:: 09:54
--- NOTE | 2023-03-05 15:20 | BH.TPR ---
Treatment Plan Review Demographics Date of Admission:: 02/12/23 Date of Treatment Plan Review:: 03/05/23 Admitting Diagnoses:: 1. Generalized anxiety disorder 2. Major depression, recurrent, moderate 3. Panic disorder Current Diagnoses:: 1. Generalized anxiety disorder 2. Major depression, recurrent, moderate 3. Panic disorder Patient Status Patient's Response to Treatment:: Pt has responded well to treatment AEB pt consistently attending IOP sessions and reduction of overall symptoms on the DSM-5 by 32% since admission. Pt contributes well during individual sessions and she is becoming more engaged during group sessions. Pt applies coping skills outside of IOP and reports overall mood is beginning to improve however this is not consistent. Pt is consistent with her goals and was reporting improving functioning at home and increased social functioning, however has recently seen some regression in her ability to recognize this progress. Status of Current Problems and Symptoms: Pt continues to report symptoms of depression and anxiety, but her symptoms are decreasing per DSM. Pt's biggest stressors right now are there's so much unknown with pt's job and not wanting to be a ?disappointment?. 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 Progress Problem #1: Problem Name:: anxiety, panic, and rumination Status of Goals:: Objective 1-in progress. Pt?s DSM-5 scores for anxiety have decreased by 22% since admission. Pt reports feeling slightly more anxiety now that her medications have changed and she has been informed of her mother?s imminent long-term, which has increased pressure for pt to decide her future career plans. Pt reports using meditation and deep breathing Objective 2- in progress. Pt reports increased awareness of distortions and pt had done well to combat distortions with therapist. Pt working on staying in the moment and looking at the evidence when anxious outside of tx environment. Also working on reducing safety behaviors. Team Recommendations:: Treatment team encourages pt to continue working on incorporating calming skills as well as reducing safety behaviors to reduce anxiety and ruminations. Pt is also encouraged to discuss career stressors further with mother. Problem #2: Problem Name:: hopelessness, negative self-talk, and fleeting SI Status of Goals:: Objective 1- in progress. Pt?s DSM-5 scores for depression have remained the same since admission, however pt continues to deny SI since admission. Pt reports improved engagement in self-care and functioning, but her scores are still showing she experiences depressive symptoms more than half the days. Objective 2- in progress. Pt has gained awareness of cognitive distortions as well as self-compassion. Pt can identify distorted thought patterns and she is working on giving herself more credit. Team Recommendations:: Treatment tx encourages pt to continue working on this tx goal as pt has made progress, but she can continue to reduce intensity of depressive symptoms. Pt also can benefit from challenging distortions and giving herself credit more consistently.
--- NOTE | 2023-03-07 09:00 | BH.SGPN.GN ---
Behaviors/Verbalizations/Mental Status: [] Eye contact is good. Motor activity is appropriate. Appearance is casual. Speech is Appropriate. Mood is depressed/irritable. Affect is congruent. Thoughts are linear and logical. No evidence of psychosis. Reviewed daily check in sheet and pt reports 1/5 for suicidal thoughts and 0/5 for intent. Client Response/Progress/Benefit: [] Pt participated in group discussion. Attentive. Daily symptom tracker notes 3/5 for anxiety and 2/5 for depression/irritability. Emotion for today is anxious. Reports increased anxiety today which has led to frustration. I have self-doubt all the time. Mental health win was being able to watch [email or web address] yesterday. Shared that she struggles with self-care and allowing herself to have downtime to shut her brain off. Reports feeling obligated to work on her anxiety whenever she gets a chance by reading. Insight that this can have a negative consequence leading to more rumination, feelings of failure, and worsening anxiety. Currently she is frustrated with her progress. Limited progress noted per pt report. Will continue in IOP to prevent decompensation, decrease anxiety, and to increase healthy coping skills. Narrative Note: []
--- NOTE | 2023-03-07 10:15 | BH.SGPN.GN ---
Behaviors/Verbalizations/Mental Status: [] Eye contact is good. Motor activity is appropriate. Appearance is casual. Speech is Appropriate. Mood is anxious. Affect is congruent. Thoughts are linear and logical. No evidence of psychosis. Client Response/Progress/Benefit: [] Pt was an active participant in group discussion and experiential activity. Able to related the activity to the topic of coping skills. Provided feedback during interactive discussion on coping skills. Group identified aspects that can influence copings skills which included; environment, learned behaviors, past experiences, accessibility, and the amount of effort placed in practicing skills. Discussion on the difference between internal vs external coping skills as well as healthy vs unhealthy coping skills such as; denial, minimization, crying, lashing out, substance abuse, retail therapy, and sleeping to escape. Benefited from increased education on coping skills. Will continue in IOP to prevent decompensation, decrease anxiety, and increase healthy coping skills. Narrative Note: []
--- NOTE | 2023-03-07 11:15 | BH.SGPN.GN ---
Behaviors/Verbalizations/Mental Status: [] Client alert and oriented, casually dressed and groomed. Eye contact good. Motor activity appropriate. Speech within normal limits. Affect congruent, mood anxious. Thoughts linear, logical, no signs of hallucinations or delusions. Client Response/Progress/Benefit: [] Client responded well to session AEB taking notes and providing input and examples throughout. Group discussed the different categories of coping skills which included distraction, emotional release, grounding, self-love, and thought challenging. Client created a coping skill menu identifying various skills to try in each category. Client?s coping skill menu included: physical activity, reach out to friends/family, 5-senses, self-compassion/positive affirmations, identifying and reframing distortions. Appeared to benefit from increasing repertoire of healthy coping skills. Client will continue IOP tx to improve daily functioning, reduce negative thinking, and increase anxiety management skills. Narrative Note: []
--- NOTE | 2023-03-12 10:20 | BH.SGPN.GN ---
Behaviors/Verbalizations/Mental Status: []Pt alert and oriented, neatly dressed and groomed. Eye contact good. Motor activity appropriate. Speech within normal limits. Affect congruent, mood anxious. Thoughts linear, logical, no signs of hallucinations or delusions. Client Response/Progress/Benefit: []Pt was mostly a passive participant in small group discussion. Pt?s group worked together to identify benefits of healthy relationships which included insight, accountability, and guidance. Group identified factors that lead to unhealthy relationships. Pt?s personal factors included not knowing different and difficulty expressing roles. Actively participated in group experiential activity and expressed ideas to group. Benefited from increased insight and awareness of benefits of healthy relationships and factors that contribute to unhealthy relationships. Will continue IOP tx to increase application of healthy coping skills, improve daily functioning, and gain distress tolerance skills. Narrative Note: []
--- NOTE | 2023-03-12 11:18 | BH.SGPN.GN ---
Behaviors/Verbalizations/Mental Status: [] Client alert and oriented, casually dressed and groomed. Eye contact good. Motor activity appropriate. Speech within normal limits. Affect congruent, mood dysthymic, anxious. Thoughts linear, logical, no signs of hallucinations or delusions. Client Response/Progress/Benefit: [] Client responded well to session, engaged and taking notes throughout. Worked with group to identify how variables contributing to the stability of the ball in the activity with characteristics of healthy and unhealthy relationships. Attentive during psychoeducation about characteristics of healthy, unhealthy, and abusive relationships. Client stated within the relationship with her she does well with trust and enjoying personal time. Client reported an area she would like to improve in is open and consistent communication. Client shared she could so by reminding herself of the importance of communicating. Appeared to benefit from identifying the current healthy relationship attributes and an area client wants to work on to build healthier relationships. Client to continue IOP to increase application of calming skills, challenge distortions, and prevent decompensation. Narrative Note: []
--- NOTE | 2023-03-12 11:38 | PCM.BH.PN_ITS ---
Progress Note Progress Note: History of Present Illness/Interim History: The patient is a 32-year-old female with a history of severe generalized anxiety disorder who is seen in follow-up at the [facility] behavioral health IOP. I last saw the patient 1 week ago and she requested to be seen again to discuss possible side effects and answer questions. The patient states that she is overall tolerating the Zoloft well but has noticed that she has been waking up sweaty in the morning in the past week or so and wonders as if this could be a side effect of the medication. The patient states that her anxiety remains and she feels that she worries a lot still. She continues to focus on somatic symptoms such as her minimal tremor at times and occasional weird feelings in her head. The trazodone is still helping her sleep. She did take Ativan 1 a day in the past 2 days and it did help her anxiety. The patient has had some improvement since seem to worry more about not getting better as rapidly as she would like. Her habit of looking up side effects and perseverating on them is also made it difficult to get her to a high enough dose for improvement. She denies passive thoughts of , passive suicidal ideation, plan for suicide, active suicidal ideation, homicidal ideation, hallucinations, delusions or intrusive thoughts or rituals. Current psych Meds: Zoloft 100 mg p.o. daily (x1 week); trazodone 50 to 100 mg p.o. nightly for sleep; Ativan 0.5-minute milligrams 1 as needed for panic attack. Current Psychiatric Medications: [] See above Mental Status Examination: [] The patient is a 32-year-old female who appears normal for stated age and is ambulatory with a normal gait. She is casually dressed and groomed with good hygiene and has no psychomotor agitation or retardation. Eye contact is good and speech is normal rate and rhythm and fluent with no pressure. Mood is anxious. Affect is mildly constricted to full and normal. Thought process is goal-directed and organized. Thought content: There is evidence of significant worry still and perseverating on somatic symptoms of anxiety. There is no evidence of passive thoughts of , suicidal ideation, homicidal ideation, hallucinations or delusions. Reality testing is intact. Intelligence is above average. Judgment is intact. Insight is good. Diagnoses: [] 1. Generalized anxiety disorder 2. Major depression, recurrent, moderate 3. Panic disorder Plan: [] Patient will continue the IOP as the structure, support, education and group therapy will hopefully prevent worsening of the patient's symptoms. She felt safe during the interview and if it anytime she does not feel safe she will let us know or go to the emergency room. The risk, options, possible complications and side effects of the medications were again discussed with the patient and she understands accepts these. The patient agrees to wait this out and to give it another week or 2 to see see if she gets any improvement in her anxiety and to see if the waking up sweaty or hot flashes overnight resolve. She will continue to follow-up with her outpatient providers and I will see the patient in follow-up while she is in the IOP program.
--- NOTE | 2023-03-12 15:22 | BH.MDN_ITS ---
Multi-Disciplinary Note Note 60-min Individual: Time Started:: 09:08 Date: 03/17/23 Purpose of session/treatment goals addressed:: To address treatment plan goals #1 and #2 and create a small self-care goal. Eye Contact:: Good (tearful) Motor Activity:: Appropriate Appearance:: Casual Speech:: Appropriate Mood:: Anxious and Dysthymic Affect:: Congruent Thoughts:: Linear, Logical and No evidence of hallucinations/delusions noted Staff Interventions:: thought challenging, motivational interviewing, CBT techniques, mindfulness skills, strengths perspective and goal setting Client Response:: Pt responded well to session, open to meeting with therapist. Pt shared she followed through with goals of not reading her ?Overcoming unwanted intrusive thoughts book? outside of designated time, as well as beginning an accomplishment journal. Pt reports these have both been helpful in improving he self-talk and reducing the amount of time she spends pathologizing her anxiety sx. Went on however to discuss ongoing difficulties in accepting her anxiety and learning to live with it. Reports that although she knows this is something she will likely struggle with lifelong, she cannot help but focus on wanting to eliminate the anxiety completely. Provided insight that her difficulties in accepting her anxiety continue to trigger panic symptoms when she begins to experience any anxious symptoms. Reported ?I just feel like I should?ve made more progress by now?. Able to connect with discussion challenging pt expectations of progress being linear with what progress typically looks like. Pt connected this with the variability of making progress in working out. Went on to discuss the stressor impacting her most significantly is struggling with thoughts of ?what?s the point? or ?Why am I doing all of this if there isn?t really a purpose to it all?. 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 Pt recognized this is likely contributing to feelings of burnout and reinforcing hopelessness/purposelessness. Reports plans to find ways to incorporate her own hobbies/interests into daily life. Shared although it is uncomfortable for her to loosen the control, she is going to discuss having her do the nighttime routine with their children once a week so pt can attend a crossfit class. 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 Risks/Concerns:: No SI or thoughts of reported as of this date. Identifies her family and geri as protective factors. Progress Toward Goals/Plan:: Pt continues to make variable progress towards her tx goals AEB pt's self-report of some reduction in anxiety symptoms and taking steps to improve self-compassion. Pt continues to follow-through with her goals and complete all homework from sessions. She is doing well to begin implementing an accomplishment journal as well as practicing calming skills. Pt does however continue to report ongoing difficulties managing ruminating thoughts and continued engagement in safety behaviors. Pt reports sx of anxiety tend to be worst in the morning, specifically at work. Pt continues to experience panic symptoms and anxiety, but her symptoms are resolving. Pt will continue IOP tx to promote mood stability, further reduce reassurance seeking, and increase self-confidence. Time Stopped:: 10:05
--- NOTE | 2023-03-14 09:17 | BH.MDN_ITS ---
Multi-Disciplinary Note Note 60-min Individual: Time Started:: 09:07 Date: 03/14/23 Purpose of session/treatment goals addressed:: To work on treatment plan goal #1. Eye Contact:: Good Motor Activity:: Restless Appearance:: Casual Speech:: Appropriate and Pressured Mood:: Anxious Affect:: Congruent Thoughts:: Linear, Logical, Racing and No evidence of hallucinations/delusions noted Client Response:: Pt responded well to session, actively engaged throughout. Reports feeling less depressed and more positive today. Attributes this to taking time for self-care and allowing herself to spend an evening away from her kids. Pt described going to see ?[place]? in concert with her mother and sister. Reflected that it had been nice to do something just for the enjoyment of it and that she experienced significantly less anxiety throughout the evening. Went on to share that her had done well with taking over the caregiving responsibilities for the evening, reassuring pt?s anxiety about taking time for self-care one evening a week. Pt discussed that she has plans to go to an evening yoga class tonight after her children go to bed. Continues to report struggling with racing thoughts and anxiety most days. Acknowledges that her expectations for herself are unrealistic which continues to reinforce anxiety sx. Identified her most anxious time of day is when she first arrives for work, especially on days her 1y/o and 3y/o are less cooperative/ more easily distracted. Insight that those mornings tend to be less predictable and more chaotic and stressful leaving pt ?on edge? and likely more vulnerable to anxious thoughts. Additionally identified a connection between difficult mornings with her kids and higher anxiety at work as well. Reviewed several skills pt can use to relax/reduce stress after dropping her kids off at daycare and before going into work. Identified plans to listen to music and go for a short walk to mentally ?reset? and prepare for the day. Plans to begin implementing this daily. Risks/Concerns:: No SI or thoughts of reported as of this date. Identifies her family and geri as protective factors. Progress Toward Goals/Plan:: Progress noted. Pt sefl-reports improved mood and reduced anxiety since Friday. Attributes this to improved self-care and continuing to make progress with self-compassion and acceptance. Does continue to report some symptoms of anxiety including racing thoughts, shakiness, and worry about the future though these are continuing to make progress on resolving. Pt will continue IOP tx to promote mood stability, further reduce an xiety sx, and increase self-compassion. Time Stopped:: 10:03
--- NOTE | 2023-03-14 10:15 | BH.SGPN.GN ---
Behaviors/Verbalizations/Mental Status: [Patient was alert and oriented, casually dressed and groomed. Eye contact good, motor activity normal, speech within normal limits. Affect congruent, mood content. Thoughts linear, logical, no signs of hallucinations or delusions. ] Client Response/Progress/Benefit: [Patient was open and participated in group discussions. Attentive during psychoeducation on behavior activation. Participated during the activity. Interactive group discussion on behavior activation in which group verbalized different up and down activities and how they can positively or negatively impact their actions. Patient stated some of her ?up? activities are doing the dishes, cleaning, and letting herself laugh. Patient stated some of her ?down? activities are ruminating, procrastinating, and starting to think too much. Patient benefited from increased awareness of stages of changes and how emotions impact change. Will continue in IOP to promote gains, further combat distorted thinking, and improve daily functioning.] Narrative Note: []
--- NOTE | 2023-03-14 11:10 | BH.SGPN.GN ---
Behaviors/Verbalizations/Mental Status: [] Eye contact is good. Motor activity is appropriate. Appearance is casual. Speech is Appropriate. Mood is euthymic. Affect is congruent. Thoughts are linear and logical. No evidence of psychosis. Client Response/Progress/Benefit: [] Pt responded well to session, attentive and engaged in group discussions and activity. Group discussed values and the benefits that knowing one's values can have on one's mental health. Pt explored own values and identified personal top values. Pt stated important value is her family/kids. Stated she wants to be a good mom and and be involved. Client set goals to spend quality time with her family and find activities for her kids to engage. Pt appeared to benefit from exploring values and creating a weekly goal. Will continue in IOP to continue improve healthy coping skills, challenge distortions, and prevent decompensation.
--- NOTE | 2023-03-19 09:00 | BH.SGPN.GN ---
Behaviors/Verbalizations/Mental Status: [] Eye contact is good. Motor activity is appropriate. Appearance is casual. Speech is Appropriate. Mood is anxious. Affect is congruent. Thoughts are linear and logical. No evidence of psychosis. Reviewed daily check in sheet and no reports of suicidal ideations or intent. Client Response/Progress/Benefit: [] Pt was an active participant in group discussions. Attentive. Daily symptom tracker notes 07/07 for depression and anxiety. She reports that she had a very difficult last couple of days. ? It was rough?. Identified panic like symptoms however ? worked through them?. Continues to struggle giving herself credit for utilizing skills to work through anxiety feeling as if she ?should? not even be having panic symptoms. She reports that she has been allowing herself ?unstructured? time during the weekends and how this is meant to be beneficial to her mental health. 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 Difficult for pt to identify that she had several positive mental health wins. Benefited from group support, reframing, and encouragement. Will continue in IOP to prevent decompensation, decrease anxiety, and increase healthy coping. Narrative Note: []
--- NOTE | 2023-03-19 10:15 | BH.SGPN.GN ---
Behaviors/Verbalizations/Mental Status: [Patient was alert and oriented, casually dressed and groomed. Eye contact good, motor activity normal, speech within normal limits. Affect congruent, mood content. Thoughts linear, logical, no signs of hallucinations or delusions. ] Client Response/Progress/Benefit: [Patient was open and participated in group discussions. Attentive during psychoeducation on growth mindset. Participated during the activity. Interactive group discussion on growth mindset in which group verbalized their current fixed mindsets and how they affect their mental health. Patient shared that one of her fixed thoughts was ?I?m not doing enough?. Patient benefited from increased awareness of growth mindset and fixed thoughts and how fixed thoughts impact their mental health. Will continue in IOP to promote gains, further combat distorted thinking, and improve daily functioning.] Narrative Note: []
--- NOTE | 2023-03-19 11:10 | BH.SGPN.GN ---
Behaviors/Verbalizations/Mental Status: []Pt alert and oriented, neatly dressed and groomed. Eye contact good. Motor activity appropriate. Speech within normal limits. Affect congruent, mood anxious. Thoughts linear, logical, no signs of hallucinations or delusions. Client Response/Progress/Benefit: [] Pt was an active participant during activity and discussion AEB providing some input, connecting with peers, as well as taking notes throughout. Pt did well to engage as group worked on identifying characteristics and benefits of adopting a growth mindset. Worked with fellow participants in reframing the example fixed thoughts into growth mindset thoughts. Pt worked on changing own fixed thought of ?I?m stuck and I?ll never get better? to growth thought of ?I have power and I can work on this and change it.? Benefitted from discussing benefits of growth mindset and brainstorming strategies for prompting growth-mindset. Pt appeared to benefit from working in small groups to challenge own thoughts and help peers. Pt will continue IOP tx to promote mood stability, reinforce healthy coping skills, and improve self-confidence. Narrative Note: []
--- NOTE | 2023-03-21 10:10 | BH.SGPN.GN ---
Behaviors/Verbalizations/Mental Status: []Pt alert and oriented, casually dressed and groomed. Eye contact good. Motor activity appropriate. Speech within normal limits. Affect congruent, mood euthymic and anxious. Thoughts linear, logical, no signs of hallucinations or delusions. Client Response/Progress/Benefit: [] Pt receptive to session AEB contributing to small group discussion, as well as listening attentively to others, and taking notes. Worked with group to brainstorm the positive and negative aspects of stress on physical and mental health. Group did well to identify the benefits of stress as well as the impact of distress on performance, relationships, and mental health. Pt identified their personal top stressors as: mental health functioning, work, and hyperfocusing on symptoms. Pt seemed to benefit from increased awareness of current stressors and impact stress has on mental health. Recommended to continue IOP tx to decrease anxious symptoms, increase heatlhy coping skills, and prevent decompensation.
--- NOTE | 2023-03-21 10:15 | BH.SGPN.GN ---
Behaviors/Verbalizations/Mental Status: [ Patient was alert and oriented, casually dressed and groomed. Eye contact good, motor activity normal, speech within normal limits. Affect congruent, mood content. Thoughts linear, logical, no signs of hallucinations or delusions. ] Client Response/Progress/Benefit: [ Patient was open and participated in group discussions. Attentive during psychoeducation on stress. Participated during the activity. Interactive group discussion on stress in which group verbalized their current stresses in their lives and if certain stressors were larger than others. Patient shared that when she is stressed, she will think of the worst possible outcome and disrupts her. Patient benefited from increased awareness of the effects of stress on their mental health. Will continue in IOP to promote gains, further combat distorted thinking, and improve daily functioning.] Narrative Note: []
--- NOTE | 2023-03-21 11:15 | BH.SGPN.GN ---
Behaviors/Verbalizations/Mental Status: []Pt alert and oriented, neatly dressed and groomed. Eye contact good. Motor activity appropriate. Speech within normal limits. Affect congruent, mood anxious. Thoughts linear, logical, no signs of hallucinations or delusions. Client Response/Progress/Benefit: []Pt was an active participant in group discussions and experiential activity. Was able to identify the connection between the experimental activity and utilization of stress management skills. Attentive during psychoeducation on the 4 A's (Avoid, adapt, alter, accept) of coping with stress as well as strategies to identify stressors in which one has no control, little control, or a great deal of control over. Pt shared plans to utilize the skill of acceptance to help with the stressor of her mental health symptoms. Pt stated she wants to get better at sitting with the uncomfortable and understanding that the future is out of her control. Benefited from increased awareness of stress management strategies. Will discharge from IOP tx today as pt has accomplished her tx goals and no longer meets criteria for IOP level of care. ? Narrative Note: []
--- NOTE | 2023-03-21 15:05 | BH.MDN ---
Multi-Disciplinary Note Note 60-min Individual: Time Started:: 09:18 Date: 03/21/23 Purpose of session/treatment goals addressed:: To address current stressors and discuss strategies to help cope with these stressors. Another goal was to discuss discharge and aftercare. Eye Contact:: Good Motor Activity:: Appropriate Appearance:: Neat and Casual Speech:: Appropriate Mood:: Euthymic and Anxious Affect:: Congruent Thoughts:: Linear, Logical and No evidence of hallucinations/delusions noted Staff Interventions:: thought challenging, CBT techniques, discharge planning and strengths perspective Client Response:: Pt responded well to session, open to meeting with therapist. Pt reports she is feeling ready to discharge from [facility] tx and continue with individual outpatient therapy on a weekly basis. Discussed feeling hopeful about this now that she has met with her outpatient provider twice and believes it is a good fit. Discussed current stressor of deciding whether to go out with friends for a ?girl?s night? or attend a Friendsgiving with another set of friends. Pt did well to problem-solve, paying attention to which plans would best promote mental wellness and reduce unnecessary additional stress. Pt reports that although she has continued anxiety, she is able to recognize she has made progress in treatment. Reports progress in her ability to recognize her own resilience, challenge her unrealistic expectations, and has more acceptance for her anxiety. Able to identify stressors that continue to reinforce her anxiety, such as clutter/a messy house and reports plans to work with her family to declutter as well as continue to advocate for her needs with her . Pt did well to identify coping skills and self-care strategies to promote gains and help pt continue to grow in her mental wellness journey. Pt identified coping skills to help pt such as walking, reaching out, engaging in physical activity, cooking, listening to music, practicing self-compassion, and challenging her anxious thoughts. Pt plans to continue working with her outpatient therapist and psychiatrist. Risks/Concerns:: Pt denies any active SI, plan, or intent. Progress Toward Goals/Plan:: Pt has accomplished her tx goals AEB her overall symptom reduction of 29% since admission. Pt's irritability has decreased by 50%, sleep problems has decreased by 75%, and anxiety has decreased by 22% since admission. Pt reports improved mood stability and continues to respond well to challenging and sitting with her anxious thoughts. Pt reports improved ability to manage anxiety triggers and has significantly increased her ability to manage negative thinking. Pt will d/c on this date and continued with outpatient providers. Time Stopped:: 10:16
--- NOTE | 2023-03-21 15:22 | BH.DS ---
Discharge Summary Demographics Date of Admission:: 02/12/23 Discharge Date: 03/21/23 Presenting Problems at Admission:: The patient is a 32-year-old female with a history of anxiety who was referred to the [facility] IOP by her psychiatric providers at [place] [id number] for worsening anxiety. The patient works full-time at her mother[employer] and she likes the work enough but is uncertain if she wants to take it over when her mother retires which is a major stressor for her. The patient has a history of anxiety which has worsened in the past few months when she panicked 1 night the night before she had a planned day of vacation. The patient states that she likes to be busy and she often feels anxious or panicked when she is not. She states that she has daily feelings of panic with increased heart rate and feeling a sense of impending doom. She has constant intrusive thoughts which involve worry about ordinary issues in life such as what why cook for dinner for the rest of my life, what is the point of living, am I good enough it what I do. The patient describes herself as always being perfectionistic and hard-working. She has been feeling her worst anxiety in the morning when she wakes up. Her mood is sad and down with occasional crying. She occasionally feels hopelessness and feels chronically inadequate but denies worthlessness. She does admit to fleeting, passive suicidal ideation in recent weeks but denies any plan for suicide or any intent. She wants to feel better and does not want to live her life in this way. She is a worrier by nature and ruminates negatively and describes racing thoughts of worry. Current symptoms are impacting her ability to function socially, occupationally, and emotionally. Discharge Diagnoses:: 1. Generalized anxiety disorder 2. Major depression, recurrent, moderate 3. Panic disorder Reason for Discharge:: Pt has completed her IOP tx goals AEB pt's reduction of DSM-5 symptoms by 29% since admission. Additionally, pt reports improved daily functioning, reduced negative thinking patterns, and improved self-compassion. Pt will continue with outpatient counseling and see her psychiatrist for medication management. Treatment Progress During Treatment & Response: Pt has responded well to treatment as evidenced by Pt consistently attending IOP sessions and her reduction of DSM-5 scores since admission. Pt was always attentive and receptive to learning during group and individual sessions. Pt actively applied coping skills outside of IOP and reports overall her mood is improved and she is functioning better than she was several months ago. Pt?s overall symptom reduction is 29% since admission with irritability has decreased by 50%, sleep problems has decreased by 75%, and anxiety has decreased by 22% since admission. Pt reports improved mood stability and continues to respond well to challenging and sitting with her anxious thoughts. Pt reports improved ability to manage anxiety triggers and has significantly increased her ability to manage negative thinking. Issues Still to be Addressed:: Anxiety, reducing reassurance seeking, communicating needs and negative thinking patterns, anxiety management skills, and increasing self-compassion. Discharge Recommendations/Instructions:: Pt will follow up with Hyun Guevara for medication management. Pt's last appointment was last week. Pt also has an outpatient therapist, Chantelle France, who pt saw yesterday and will likely see weekly. Discharge Handout
== END 2023-03-21 12:03 | disposition home or self-care (01) ==
LOC: BHIOP 06:49
PROVIDERS: PCP Family Medicine; Referring Provider Psychiatry & Neurology Psychiatry; Visit Provider Psychiatry & Neurology Psychiatry
DX: F41.1 Generalized anxiety disorder (principal); F33.1 Major depressive disorder, recurrent, moderate; F41.0 Panic disorder [episodic paroxysmal anxiety]
CPT/HCPCS: S9480; 90837; 90853